=== PATIENT | female | born 1950 | race Caucasian/White ===

== ENCOUNTER → 2017-12-12 10:08 | Outpatient (CLI) | payer OTHER, MEDICARE, SELFPAY ==
--- NOTE | 2017-12-12 10:12 | DI.RAD.S_ITS ---
PROCEDURE: XR HIP W PEL IF DONE RT 2V INDICATIONS: Clicking sound with ambulation/pain TECHNIQUE: AP pelvis with lateral view(s) of the left and right hip(s). COMPARISON: None. FINDINGS: Bones: No fractures or dislocations. Pelvic ring appears intact. No suspicious bony lesions. Mild subchondral sclerosis and spurring in tibial is bilateral although no definite hip joint space narrowing. Lower lumbar discogenic changes are present. Presumed subcentimeter bone island projecting in the right ischial tuberosity. Soft tissues: The visualized bowel gas pattern is normal. No suspicious soft tissue calcifications. IMPRESSION: Mild bilateral hip degenerative changes as above. Lower lumbar spine degenerative disc disease. Dictated by: Albert Lance M.D. on 12/12/2017 at 11:48 Approved by: Albert Lance M.D. on 12/12/2017 at 11:50
[2017-12-12 11:32] LABS: Add Manual Diff / Slide Review NO; Basophils Percent Auto 0.5 % (0-2); Eosinophils Percent Auto 0.8 % (2-4); Hematocrit 37.5 % (36-46); Hemoglobin 12.9 g/dL (12.0-16.0); Lymphocytes Percent Auto 23.5 % (25-40); Mean Corpuscular HGB Conc 34.3 % (30-36); Mean Corpuscular Hemoglobin 30.8 PG (26-34); Mean Corpuscular Volume 89.9 fL (80-100); Monocytes Percent Auto 7.6 % (3-14); Neutrophils Absolute Auto 3200 /uL (3000-5900); Neutrophils Percent Auto 67.6 % (50-75); Platelet Count 302 X10^3/uL (150-400); Red Blood Cell Count 4.17 X10^6/uL (4.0-5.2); Red Cell Distribution Width 13.4 % (11.6-14.8); White Blood Cell Count 4.7 X10^3/uL (4.5-11.0)
[2017-12-12 11:39] LABS: Alanine Aminotransferase 28 IU/L (9-52); Albumin 4.6 g/dL (3.5-5.0); Albumin Globulin Ratio 1.4 (1.0-2.8); Alkaline Phosphatase 39 U/L (38-126); Aspartate Aminotransferase 26 IU/L (14-36); BUN Creatinine Ratio 18.6 (6-22); Bilirubin Total 0.5 mg/dL (0.2-1.3); Blood Urea Nitrogen 13 mg/dL (7-17); Calcium 9.8 mg/dL (8.4-10.2); Carbon Dioxide 31 mmol/L (22-32); Chloride 101 mmol/L (98-107); Cholesterol 198 mg/dL (140-199); Estimated Glomerular Filt Rate > 60.0 mL/min (>60); Globulin 3.2 g/dL (1.7-4.1); Glucose 84 mg/dL (80-110); HDL Cholesterol 60 mg/dL (40-60); HEMOLYSIS < 15 (0-50); LDL Cholesterol Calculated 123 mg/dL (<100); Potassium 3.8 mmol/L (3.4-5.1); Sodium 143 mmol/L (137-145); Total Protein 7.8 g/dL (6.3-8.2); Triglycerides 73 mg/dL (35-150)
[2017-12-12 12:08] LABS: Thyroid Stimulating Hormone 2.46 uIU/mL (0.47-4.68)
== END ==
PROVIDERS: Family Provider Family Medicine; PCP Family Medicine; Visit Provider Nurse Practitioner Family
DX: I10 Essential (primary) hypertension (principal); E78.5 Hyperlipidemia, unspecified; M25.551 Pain in right hip
CPT/HCPCS: 36415; 73502; 80053; 80061; 84443; 85025

== ENCOUNTER 2018-02-05 10:45 | Outpatient (RCR) | payer OTHER, MEDICARE, SELFPAY ==
--- NOTE | 2018-02-05 12:47 | PT.OIE ---
Current Diagnoses Osteoarthritis of hip, unspecified (02/05/18) Pain in left hip (02/05/18) Strain of muscle, fascia and tendon of the posterior muscle group at thigh level, left thigh, subsequent encounter (02/05/18) Past Medical History (Last Reviewed 12/12/17 @ 10:39 by Geraldine Rivas DNP, ANP, DOCUMENT SCANNER-C) Foot pain (Chronic) Migraines (Chronic 2004) RLS (restless legs syndrome) (Chronic) Shoulder pain (Chronic 2004) Anemia (Resolved 1969) Chicken pox (Resolved) Mumps (Resolved) Urinary incontinence (Resolved) Past Surgical History (Last Reviewed 12/12/17 @ 10:39 by Geraldine Rivas DNP, ANP, DOCUMENT SCANNER-C) Anesthesia (Resolved) History of breast surgery (Resolved 2007) History of urinary tract surgery (Resolved 1999) Status post bunionectomy (Resolved 1984) Status post colonoscopy (Resolved 2010) Provider Visit Care Team Role Provider Type Mora Samayoa MD Family Provider Physician Primary Care Provider Specialty: [facility] Address: [address] [place] [address], [facility] Email: [email or web address] Geraldine Rivas DNP, SHAUN, DOCUMENT SCANNER-C Attending Provider Advanced Solder Cream Maker Specialty: [facility] Address: [address] [place] [address], [facility] Email: Physical Therapy Initial Evaluation PT-OP-A Visit Information Start: 02/05/18 12:17 Freq: Status: Active Protocol: Document 02/05/18 11:15 DCW (Rec: 02/05/18 12:47 DCW [id number]) Out-Patient Physical Therapy Visit Information Visit Information Visit Type Initial Evaluation Visit Start Time 11:15 Visit Stop Time 11:50 Total Visit Minutes 35 Visit Number 1 Number of REFLESHER Visits 0 Evaluation Information Evaluation Date 02/05/18 PT-OP-B Current Condition Start: 02/05/18 12:17 Freq: Status: Active Protocol: Document 02/05/18 11:15 DCW (Rec: 02/05/18 12:47 DCW [id number]) Current Condition History of Current Condition Onset Date three months Current Complaints posterior hip pain History of Current Condition Pt is a 67 year old female presenting with a three month history of hip pain. 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 Pt notes that it was much worse at that time than it is currently . Pt reports a recent goal of walking 10,000 steps each day, and she normally doesn't get much pain, but does experience some clicking in her lateral thigh, notes she can 't really feel it, I just hear it. Pt can relieve her pain with Naproxin and/or ice. Last year, she was having some back pain, was seen in Pt, and has an HEP which helps her control her back pain, which she continues to do, and she has noticed it does help her hip pain as well. Pt reports that she has had x-rays, which revealed the beginning of hip arthritis. Prior Treatments and Tests X-rays - bilateral hip osteoarthritis Treatment Goals Patient/Caregiver Goals I want to make sure I can keep walking and stay active. Prior Functional Status Baseline Function- ADL's Independent Baseline Function- Mobility Independent Baseline Function- Recreation/Hobbies walking 10,000 steps/day PT-OP-C Subjective Start: 02/05/18 12:17 Freq: Status: Active Protocol: Document 02/05/18 11:15 DCW (Rec: 02/05/18 12:47 DCW [id number]) Patient Questionnaires Lower Extremity Functional Scale LEFS Score 64/68 = 94.12% LEFS Impairment 1 to 19% Impaired (Score 63-79 ) OP-PT Pain Assessment Pain Assessment Grid Paper Pain Assessment Grid Completed Yes Location Left Posterior Lateral Hip Intensity 3 Scale Used Numeric (1 - 10) Description Aching Pressure PT-OP-F Manual Assessment Start: 02/05/18 12:17 Freq: Status: Active Protocol: Document 02/05/18 11:15 DCW (Rec: 02/05/18 12:47 DCW [id number]) Manual Assessments Soft Tissue Assessment Soft Tissue Mobility Assessment Moderate tone at left piriformis, Tenderness 1/4 = Complaint of pain, at L piriformis and L ITB Joint Mobility Assessment Joint Mobility Assessment bilateral hip mobility WNL, no reports of pain PT-OP-K Range of Motion Start: 02/05/18 12:17 Freq: Status: Active Protocol: Document 02/05/18 11:15 DCW (Rec: 02/05/18 12:47 DCW [id number]) Hip Goniometric Range of Motion Hip Measured in Degrees Right Passive Hip ROM WFL Yes Right Active Hip ROM WFL Yes Left Passive Hip ROM WFL Yes Left Active Hip ROM WFL Yes Knee Goniometric Range of Motion Knee Measured in Degrees Right Knee ROM WFL Yes Left Knee ROM WFL Yes PT-OP-L Special Tests Start: 02/05/18 12:17 Freq: Status: Active Protocol: Document 02/05/18 11:15 DCW (Rec: 02/05/18 12:47 DCW [id number]) Special Tests Hip Special Tests Tripod Sign Test Results Negative Scour Test Test Results Negative Moore's Compression Test Results Negative Piriformis Test Results Tenderness/Increased tone Straight Leg Raise Test Results Negative FELICITAS Test Results Negative Knee Special Tests Sandeep's Test Test Results Negative PT-OP-M Strength Start: 02/05/18 12:17 Freq: Status: Active Protocol: Document 02/05/18 11:15 DCW (Rec: 02/05/18 12:47 DCW [id number]) Hip Strength Hip Manual Muscle Testing Right Flexion (L2) 5 Normal Abduction 5 Normal Adduction 5 Normal External Rotation 4+ Good+ Internal Rotation 4+ Good+ Left Flexion (L2) 5 Normal Abduction 5 Normal Adduction 5 Normal External Rotation 4+ Good+ Internal Rotation 4+ Good+ Knee Strength Knee Manual Muscle Testing Right Flexion (S2) 5 Normal Extension (L3) 5 Normal Left Flexion (S2) 5 Normal Extension (L3) 5 Normal PT-OP-Q Treatments Start: 02/05/18 12:17 Freq: Status: Active Protocol: Document 02/05/18 11:15 DCW (Rec: 02/05/18 12:47 DCW [id number]) Therapeutic Exercises Supine Exercises 1 Supine Exercise Name Figure-4, Wmdn-[id number]-pwnmorqu shoulder Side left PT-OP-T Assessment and Plan Start: 02/05/18 12:17 Freq: Status: Active Protocol: Document 02/05/18 11:15 DCW (Rec: 02/05/18 12:47 DCW [id number]) Physical Therapy Assessment Rehab Potential Rehabilitation Potential Excellent Evaluation Complexity Number of Personal Factors/Comorbidities 0 Number of Body Systems Impaired 1-2 Clinical Presentation at Evaluation Stable Impairments Impairments Pain Tone Goals Three Impairment Special Testing Short Term Goal (STG) Piriformis test negative STG Duration 02/26/18 Two Impairment Pain Short Term Goal (STG) Pt to report a 0/10 pain with ambulation STG Duration 02/26/18 One Impairment Pt does not hold HEP stretches for a long enough time Short Term Goal (STG) Pt to perform independent HEP appropriately STG Duration 02/26/18 Assessment Summary Assessment Pt presents with a largely negative hip evaluation, only demonstrating moderate tone and mild tenderness to the left piriformis and ITB. Pt's pain location is not indicative of typical hip osteoarthritis/DJD, and appears to have been more a soft tissue injury to her piriformis, which has begun to help. Pt is already performing an extensive HEP from last year when she hurt her back, and is performing most, if not all, or the recommended piriformis stretching and strengthening that she would get from outpatient therapy. Pt does note, however, that she does not hold her stretches more than 15-20 seconds. Pt was informed that she should increase the length of time she holds her stretch, but other than that, is largely already doing everything correctly. Therapist and patient decided to schedule a return appointment for 2-3 weeks from her initial evaluation, and if further instruction in required, pt should return, however, if pt is progressing well and has no further questions, she may cancel her appointment, and will be discharged from PT. Physical Therapy Plan Frequency and Duration Frequency of Treatment 1x/Week Duration of Treatment 6 weeks Plan of Care Start Date 02/05/18 Plan of Care End Date 03/19/18 Therapeutic Interventions Therapeutic Interventions Home Exercise Program Joint Mobilizations Manual Therapy Self-Care/Home Management Soft Tissue Mobilization Therapeutic Exercises Modalities Cold Pack/Ice Massage Electric Stimulation Hot Packs Ultrasound Next Visit Focus/Plan Next Note Type Treatment Note Next Visit Plan Manual therapy, tone-control modalities, strengthening
--- NOTE | 2018-02-05 12:49 | PT.OPPOC ---
Current Diagnoses Osteoarthritis of hip, unspecified (02/05/18) Pain in left hip (02/05/18) Strain of muscle, fascia and tendon of the posterior muscle group at thigh level, left thigh, subsequent encounter (02/05/18) Provider Visit Care Team Role Provider Type Mora Samayoa MD Family Provider Physician Primary Care Provider Specialty: [facility] Practice Address: [address] [place] [address], [id number] Email: [email or web address] Geraldine Rivas, KENN, ANP, REHABILITATION SERVICES COORDINATOR-C Attending Provider Advanced Wheel Braider Specialty: [facility] Practice Address: [address] [place] [address], [id number] Email: Plan Of Care PT-OP-T Assessment and Plan Start: 02/05/18 12:17 Freq: Status: Active Protocol: Document 02/05/18 11:15 DCW (Rec: 02/05/18 12:47 DCW [id number]) Physical Therapy Assessment Rehab Potential Rehabilitation Potential Excellent Evaluation Complexity Number of Personal Factors/Comorbidities 0 Number of Body Systems Impaired 1-2 Clinical Presentation at Evaluation Stable Impairments Impairments Pain Tone Goals Three Impairment Special Testing Short Term Goal (STG) Piriformis test negative STG Duration 02/26/18 Two Impairment Pain Short Term Goal (STG) Pt to report a 0/10 pain with ambulation STG Duration 02/26/18 One Impairment Pt does not hold HEP stretches for a long enough time Short Term Goal (STG) Pt to perform independent HEP appropriately STG Duration 02/26/18 Assessment Summary Assessment Pt presents with a largely negative hip evaluation, only demonstrating moderate tone and mild tenderness to the left piriformis and ITB. Pt's pain location is not indicative of typical hip osteoarthritis/DJD, and appears to have been more a soft tissue injury to her piriformis, which has begun to help. Pt is already performing an extensive HEP from last year when she hurt her back, and is performing most, if not all, or the recommended piriformis stretching and strengthening that she would get from outpatient therapy. Pt does note, however, that she does not hold her stretches more than 15-20 seconds. Pt was informed that she should increase the length of time she holds her stretch, but other than that, is largely already doing everything correctly. Therapist and patient decided to schedule a return appointment for 2-3 weeks from her initial evaluation, and if further instruction in required, pt should return, however, if pt is progressing well and has no further questions, she may cancel her appointment, and will be discharged from PT. Physical Therapy Plan Frequency and Duration Frequency of Treatment 1x/Week Duration of Treatment 6 weeks Plan of Care Start Date 02/05/18 Plan of Care End Date 03/19/18 Therapeutic Interventions Therapeutic Interventions Home Exercise Program Joint Mobilizations Manual Therapy Self-Care/Home Management Soft Tissue Mobilization Therapeutic Exercises Modalities Cold Pack/Ice Massage Electric Stimulation Hot Packs Ultrasound Next Visit Focus/Plan Next Note Type Treatment Note Next Visit Plan Manual therapy, tone-control modalities, strengthening Plan of Care Dates Plan of Care Start Date 02/05/18 Plan of Care End Date 03/19/18 Please Sign and Return: I have reviewed this Plan of Care and certify that the skilled therapy services above are required to meet the patient?s needs. Physician Signature Date Printed Name and Credentials Clinical Instructor Signature Printed Name and Credentials
--- NOTE | 2018-03-20 10:25 | PT.OPDS ---
Current Diagnoses Osteoarthritis of hip, unspecified (02/05/18) Pain in left hip (02/05/18) Strain of muscle, fascia and tendon of the posterior muscle group at thigh level, left thigh, subsequent encounter (02/05/18) Provider Visit Care Team Role Provider Type Mora Samayoa MD Family Provider Physician Primary Care Provider Specialty: [facility] Practice Address: [address] [place] [address], [id number] Email: [email or web address] Geraldine Rivas, KENN, ANP, SCHOOL BUS DRIVER-C Attending Provider Advanced Landscape Maintenance Internship Specialty: [facility] Address: [address] [place] [address], [id number] Email: Visit Number Visit Number 1 Discharge Summary PT-OP-B Current Condition Start: 02/05/18 12:17 Freq: Status: Active Protocol: Document 02/05/18 11:15 DCW (Rec: 02/05/18 12:47 DCW [id number]) Current Condition History of Current Condition Onset Date three months Current Complaints posterior hip pain History of Current Condition Pt is a 67 year old female presenting with a three month history of hip pain. 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 Pt notes that it was much worse at that time than it is currently . Pt reports a recent goal of walking 10,000 steps each day, and she normally doesn't get much pain, but does experience some clicking in her lateral thigh, notes she can' t really feel it, I just hear it. Pt can relieve her pain with Naproxin and/or ice. Last year, she was having some back pain, was seen in Pt, and has an HEP which helps her control her back pain, which she continues to do, and she has noticed it does help her hip pain as well. Pt reports that she has had x-rays, which revealed the beginning of hip arthritis. Prior Treatments and Tests X-rays - bilateral hip osteoarthritis Treatment Goals Patient/Caregiver Goals I want to make sure I can keep walking and stay active. Prior Functional Status Baseline Function- ADL's Independent Baseline Function- Mobility Independent Baseline Function- Recreation/Hobbies walking 10,000 steps/day PT-OP-C Subjective Start: 02/05/18 12:17 Freq: Status: Active Protocol: Document 02/05/18 11:15 DCW (Rec: 02/05/18 12:47 DCW [id number]) Patient Questionnaires Lower Extremity Functional Scale LEFS Score 64/68 = 94.12% LEFS Impairment 1 to 19% Impaired (Score 63-79 ) OP-PT Pain Assessment Pain Assessment Grid Paper Pain Assessment Grid Completed Yes Location Left Posterior Lateral Hip Intensity 3 Scale Used Numeric (1 - 10) Description Aching Pressure PT-OP-F Manual Assessment Start: 02/05/18 12:17 Freq: Status: Active Protocol: Document 02/05/18 11:15 DCW (Rec: 02/05/18 12:47 DCW [id number]) Manual Assessments Soft Tissue Assessment Soft Tissue Mobility Assessment Moderate tone at left piriformis, Tenderness 1/4 = Complaint of pain, at L piriformis and L ITB Joint Mobility Assessment Joint Mobility Assessment bilateral hip mobility WNL, no reports of pain PT-OP-K Range of Motion Start: 02/05/18 12:17 Freq: Status: Active Protocol: Document 02/05/18 11:15 DCW (Rec: 02/05/18 12:47 DCW [id number]) Hip Goniometric Range of Motion Hip Measured in Degrees Right Passive Hip ROM WFL Yes Right Active Hip ROM WFL Yes Left Passive Hip ROM WFL Yes Left Active Hip ROM WFL Yes Knee Goniometric Range of Motion Knee Measured in Degrees Right Knee ROM WFL Yes Left Knee ROM WFL Yes PT-OP-L Special Tests Start: 02/05/18 12:17 Freq: Status: Active Protocol: Document 02/05/18 11:15 DCW (Rec: 02/05/18 12:47 DCW [id number]) Special Tests Hip Special Tests Tripod Sign Test Results Negative Scour Test Test Results Negative Moore's Compression Test Results Negative Piriformis Test Results Tenderness/Increased tone Straight Leg Raise Test Results Negative FELICITAS Test Results Negative Knee Special Tests Sandeep's Test Test Results Negative PT-OP-M Strength Start: 02/05/18 12:17 Freq: Status: Active Protocol: Document 02/05/18 11:15 DCW (Rec: 02/05/18 12:47 DCW [id number]) Hip Strength Hip Manual Muscle Testing Right Flexion (L2) 5 Normal Abduction 5 Normal Adduction 5 Normal External Rotation 4+ Good+ Internal Rotation 4+ Good+ Left Flexion (L2) 5 Normal Abduction 5 Normal Adduction 5 Normal External Rotation 4+ Good+ Internal Rotation 4+ Good+ Knee Strength Knee Manual Muscle Testing Right Flexion (S2) 5 Normal Extension (L3) 5 Normal Left Flexion (S2) 5 Normal Extension (L3) 5 Normal PT-OP-T Assessment and Plan Start: 02/05/18 12:17 Freq: Status: Active Protocol: Document 03/20/18 10:22 DCW (Rec: 03/20/18 10:25 DCW [id number]) Physical Therapy Assessment Goals Three Impairment Special Testing Short Term Goal (STG) Piriformis test negative STG Duration 02/26/18 Two Impairment Pain Short Term Goal (STG) Pt to report a 0/10 pain with ambulation STG Duration 02/26/18 One Impairment Pt does not hold HEP stretches for a long enough time Short Term Goal (STG) Pt to perform independent HEP appropriately STG Duration 02/26/18 Physical Therapy Plan Discharge Physical Therapy Discharge Reasons No Longer Attending PT Discharge Comments At the time of her initial evaluation, pt was doing very well, and decided she would prefer to work on it independently. If was told to schedule a return visit within a month if she had any questions or concerns. Pt has now not been seen in more than one month, and will be discharged from skilled therapy at this time.
== END 2018-05-11 09:52 ==
LOC: PHYS 10:45
PROVIDERS: Family Provider Family Medicine; PCP Family Medicine; Visit Provider Nurse Practitioner Family
DX: M16.9 Osteoarthritis of hip, unspecified (principal); S76.312D Strain of muscle, fascia and tendon of the posterior muscle group at thigh level, left thigh, subsequent encounter; M25.552 Pain in left hip
CPT/HCPCS: 97161

== ENCOUNTER → 2018-03-05 15:00 | Outpatient (CLI) | payer OTHER, MEDICARE, SELFPAY ==
--- NOTE | 2018-03-05 15:02 | DI.RAD.S_ITS ---
This blank DEXA report has been sent in error by the PACS system. The correct and complete report will be forthcoming in 1-2 days. Thank you for your patience and understanding. Dictated by: Melody Montgomery MD, PhD on 03/06/2018 at 8:23 Approved by: Melody Montgomery MD, PhD on 03/06/2018 at 8:23
== END ==
PROVIDERS: PCP Nurse Practitioner Family; Visit Provider Nurse Practitioner Family
DX: M85.851 Other specified disorders of bone density and structure, right thigh (principal); Z78.0 Asymptomatic menopausal state; Z82.62 Family history of osteoporosis
CPT/HCPCS: 77080

== ENCOUNTER → 2018-03-27 07:46 | Outpatient (CLI) | payer OTHER, MEDICARE, SELFPAY ==
[2018-03-27 09:14] LABS: Cholesterol 163 mg/dL (140-199); HDL Cholesterol 65 mg/dL (40-60); LDL Cholesterol Calculated 87 mg/dL (<100); Triglycerides 56 mg/dL (35-150)
== END ==
PROVIDERS: PCP Nurse Practitioner Family; Visit Provider Nurse Practitioner Family
DX: E78.00 Pure hypercholesterolemia, unspecified (principal)
CPT/HCPCS: 36415; 80061

== ENCOUNTER 2018-06-27 14:53 | Outpatient (RCR) | payer OTHER, MEDICARE, SELFPAY ==
--- NOTE | 2018-06-27 16:29 | PT.OIE ---
Current Diagnoses Other chronic pain (06/27/18) Sacrococcygeal disorders, not elsewhere classified (06/27/18) Past Medical History (Last Reviewed 12/12/17 @ 10:39 by Geraldine Rivas DNP, ANP, FURNACE UNLOADER-C) Foot pain (Chronic) Migraines (Chronic 2004) RLS (restless legs syndrome) (Chronic) Shoulder pain (Chronic 2004) Anemia (Resolved 1969) Chicken pox (Resolved) Mumps (Resolved) Urinary incontinence (Resolved) Past Surgical History (Last Reviewed 12/12/17 @ 10:39 by Geraldine Rivas DNP, ANP, FURNACE UNLOADER-C) Anesthesia (Resolved) History of breast surgery (Resolved 2007) History of urinary tract surgery (Resolved 1999) Status post bunionectomy (Resolved 1984) Status post colonoscopy (Resolved 2010) Provider Visit Care Team Role Provider Type Lorin Kelsey MD Primary Care Provider Physician Specialty: [facility] Address: [address] [place] [address] Email: [email or web address] Attending Provider Advanced Workers Compensation Specialist Specialty: [facility] Address: [address] [place] [address] Email: [email or web address] Physical Therapy Initial Evaluation PT-OP-A Visit Information Start: 06/27/18 15:55 Freq: Status: Active Protocol: Document 06/27/18 15:56 EA (Rec: 06/27/18 16:28 MAIKEL [id number]) Out-Patient Physical Therapy Visit Information Visit Information Visit Type Initial Evaluation Visit Start Time 15:15 Visit Stop Time 15:50 Total Visit Minutes 35 Visit Number 1 Evaluation Information Evaluation Date 06/27/18 PT-OP-B Current Condition Start: 06/27/18 15:55 Freq: Status: Active Protocol: Document 06/27/18 15:56 EA (Rec: 06/27/18 16:28 EA [id number]) Current Condition History of Current Condition Onset Date First week of April/2018 Current Complaints C/O lack of knowledge to home exercises program History of Current Condition Pt reports right SI joint pain gradually started on the first week of April 2018 with no known injury; states she has previuos formal PT due to piriformis tightness and was discharge to home exercises program. Patient performed previous HEP and applied to current condition with better results. Today patient states that she does not have pain anymore but would like to know if there are any HEP she can do at home to prevent symptoms recurrence. Prior Treatments and Tests Formal PT June 2017: Piriformis issue. Future Testing and Treatments Planned None identified,. Treatment Goals Patient/Caregiver Goals Patient would like to know safe home exercises program Prior Functional Status Baseline Function- ADL's Independent Baseline Function- Mobility Independent Current Functional Impairments (Reported) Functional Limitations- ADL's indep no limitation Functional Limitations- Mobility/Gait indep no limitation Functional Limitations- Work/School No limitation PT-OP-C Subjective Start: 06/27/18 15:55 Freq: Status: Active Protocol: Document 06/27/18 15:56 EA (Rec: 06/27/18 16:28 EA [id number]) OP-PT Subjective Patient Comments Patient Comments I just like to know how can I prevent to have back pain. Patient also reports that she wanna know whats going to her back. Patient Reported Progress Improving Patient Questionnaires Oswestry Low Back Index Oswestry Score 0 Oswestry Impairment 0% Impaired (Score 0) PT-OP-G Mobility & Gait Start: 06/27/18 15:55 Freq: Status: Active Protocol: Document 06/27/18 15:56 EA (Rec: 06/27/18 16:28 EA [id number]) OP Mobility Evaluation Bed Mobility Rolling Indep Supine to and from Sit indep PT-OP-J Posture/Palpation/Skin Start: 06/27/18 15:55 Freq: Status: Active Protocol: Document 06/27/18 15:56 EA (Rec: 06/27/18 16:28 EA [id number]) Palpation Assessment Location One Palpation Location Right lower back Palpation Findings Soft Tissue Tightness PT-OP-K Range of Motion Start: 06/27/18 15:55 Freq: Status: Active Protocol: Document 06/27/18 15:56 EA (Rec: 06/27/18 16:28 EA [id number]) Lumbar Spine Range of Motion Lumbar Spine Active Percentage Testing Position Standing Flexion 85 Extension 80 Rotation Left 85 Rotation Right 85 Lateral Flexion Left 80 Lateral Flexion Right 80 ROM Limitations Soft Tissue Tightness PT-OP-L Special Tests Start: 06/27/18 15:55 Freq: Status: Active Protocol: Document 06/27/18 15:56 EA (Rec: 06/27/18 16:28 EA [id number]) Special Tests Lumbar Spine Special Tests Compression Test Results negative Hip Special Tests Tripod Sign Test Results Negative Scour Test Test Results Negative Piriformis Test Results Tenderness/Increased tone Straight Leg Raise Test Results Negative FELICITAS Test Results Negative Knee Special Tests Sandeep's Test Test Results Negative PT-OP-M Strength Start: 06/27/18 15:55 Freq: Status: Active Protocol: Document 06/27/18 15:56 EA (Rec: 06/27/18 16:28 EA [id number]) Trunk Strength Trunk Manual Muscle Testing Testing Position Sitting Flexion 5 Normal Extension 5 Normal Rotation Left 5 Normal Rotation Right 5 Normal Lateral Flexion Left 5 Normal Lateral Flexion Right 5 Normal Hip Strength Hip Manual Muscle Testing Left Reason Not Measured WFL Right Reason Not Measured WFL Ankle/Foot Strength Ankle and Foot Manual Muscle Testing Left Comments able to walk on heels and toes Right Comments able to walk on heels and toes PT-OP-Q Treatments Start: 06/27/18 15:55 Freq: Status: Active Protocol: Document 06/27/18 15:56 EA (Rec: 06/27/18 16:28 EA [id number]) Self-Care/Home Management Treatment Education Patient Education Body Mechanics Home Exercise Program Joint Protection Pain Management Posture Safety Other Education Proved HEP and corrected previous HEP. PT-OP-T Assessment and Plan Start: 06/27/18 15:55 Freq: Status: Active Protocol: Document 06/27/18 15:56 EA (Rec: 06/27/18 16:28 EA [id number]) Physical Therapy Assessment Evaluation Complexity Number of Personal Factors/Comorbidities 0 Number of Body Systems Impaired 1-2 Clinical Presentation at Evaluation Stable Impairments Impairments ROM Soft Tissue Mobility Assessment Summary Assessment 68 y/o F patient who diagnosed with R SI joint strain 12 weeks ago. Today patient exhibits no deficits in all functional mobility except with slight lumbar ROM limitation with slight tightness to paralumbars, QL, lumbar fascia. Patient is educated today with lifting mechanics and home exercises program. Patient requested to be discharged after today's appointment and will continue home exercise program. Physical Therapy Plan Discharge Physical Therapy Discharge Reasons Patient Request
== END 2018-09-07 16:45 | disposition home or self-care (01) ==
LOC: PHYS 14:53
PROVIDERS: PCP Family Medicine; Visit Provider Internal Medicine
DX: M53.3 Sacrococcygeal disorders, not elsewhere classified (principal); G89.29 Other chronic pain
CPT/HCPCS: 97161; 97535

== ENCOUNTER → 2018-08-22 16:08 | Outpatient (CLI) | payer OTHER, MEDICARE, SELFPAY ==
--- NOTE | 2018-08-22 16:11 | DI.MG.S_ITS ---
BILATERAL DIGITAL SCREENING MAMMOGRAM 3D/2D WITH CAD: 08/22/2018 CLINICAL: Routine screening. Family history of breast cancer. Comparison is made to exams dated: 08/21/2017 mammogram, 08/01/2016 mammogram, 07/06/2015 mammogram, 07/03/2014 mammogram, and 06/18/2013 mammogram - [facility]. The tissue of both breasts is heterogeneously dense. This may lower the sensitivity of mammography. Current study was also evaluated with a Computer Aided Detection (CAD) system. There is a benign biopsy clip in the left breast. No significant masses, calcifications, or other findings are seen in either breast. There has been no significant interval change. IMPRESSION: NEGATIVE There is no mammographic evidence of malignancy. A 1 year screening mammogram is recommended. This exam was interpreted at Station ID: [id number]. NOTE: For mammograms, a report in lay terms will be sent to the patient. Approximately 15% of breast malignancies will not be visualized mammographically. In the management of a palpable breast mass, a negative mammogram must not discourage biopsy of a clinically suspicious lesion. Electronically Signed By: Ferny ponce/omar:08/22/2018 18:27:38 letter sent: Normal Exam ACR BI-RADS Category 1: Negative [id number]
== END ==
PROVIDERS: PCP Family Medicine; Visit Provider Family Medicine
DX: Z12.31 Encounter for screening mammogram for malignant neoplasm of breast (principal); Z80.3 Family history of malignant neoplasm of breast
CPT/HCPCS: 77063; 77067

== ENCOUNTER → 2018-11-06 16:44 | Outpatient (CLI) | payer OTHER, MEDICARE, SELFPAY | PROVIDERS: PCP Family Medicine; Visit Provider Physician Assistant | DX: R35.0 Frequency of micturition (principal) | CPT/HCPCS: 87086 ==

== ENCOUNTER 2019-05-14 19:17 | Emergency (ER) | payer OTHER, MEDICARE, SELFPAY ==
[2019-05-14 19:22] VITALS: BP 177/67; PULSE 73; RESP 15; TEMP 36.9; O2SAT 100; BMI 25.4
--- NOTE | 2019-05-14 19:25 | ED.DIZZY ---
HPI - Dizziness General Chief Complaint: Urogenital-Female Stated Complaint: dizzy, blood in urine Time Seen by Provider: 05/14/19 19:25 Source: patient and family () Mode of arrival: Ambulatory Limitations: no limitations History of Present Illness HPI Narrative: This is a 69-year-old female comes to the emergency department with complaint of dizziness and blood in her urine. Patient states that she noticed the blood just today. She has also felt sort of dizzy like she has to hang on to something. She does not feel like she is going to pass out. She denies any chest pain or shortness of breath. She has been nauseated and had 1 episode of vomiting just at arrival. She states she had 3 soft stools today but no black or blood. She has had blood or urine but denies frequency, dysuria urgency. She is also complaining a little bit of right flank pain but denies any abdominal or suprapubic pain. Patient states she has had the flank pain occasionally in the past. She is once before had a UTI with hematuria and dizziness and states she does not get the usual symptoms. She takes Flexeril daily and alendronate weekly. She has had foot surgery but denied any other intra-abdominal surgeries. She has not had kidney stones in the past. She is allergic to sulfa. Dr. Kelsey is her primary care. Related Data Home Medications Medication Instructions Recorded Confirmed Pregnenolone (#PREGNENOLONE) 50 mg PO QDAY #0 04/21/11 04/30/19 ASCORBIC ACID (VITAMIN C) 500 mg PO Q DAY #0 05/12/11 04/30/19 BEE POLLEN/BIOTIN/BLACK COHO 1 tab PO BID #0 05/12/11 04/30/19 (WOMEN'S MULTIVITAMIN/MULTIMINERAL) FLAXSEED OIL (BIOFLAX) 1,000 mg PO BID #0 05/12/11 04/30/19 coenzyme Q10 [Co Q-10] 100 mg PO QDAY #0 05/12/11 04/30/19 CHOLECALCIFEROL (VITAMIN D3) 5,000 units PO QDAY #0 04/26/12 04/30/19 Vitamin E (VITAMIN E) 400 units PO QDAY #0 04/26/12 04/30/19 calcium carbonate 1,177 mg 1,200 mg PO DAILY tab 05/26/18 04/30/19 chewable tablet acyclovir 400 mg tablet 400 mg PO BID PRN tab 07/11/18 04/30/19 Previous Rx's Medication Instructions Recorded ketoconazole 0 TOPICAL BID #60 gm 01/27/17 atorvastatin 20 mg tablet 20 mg PO DAILY #90 tab 11/29/18 sumatriptan succinate 100 mg tablet 100 mg PO .COMPLEX #9 tab 03/06/19 alendronate 70 mg tablet 70 mg PO QWEEK #4 tab 03/11/19 ciprofloxacin HCl 500 mg PO Q12H #14 tab 05/14/19 Allergies Allergy/AdvReac Type Severity Reaction Status Date / Time Sulfa (Sulfonamide Allergy Severe cold Verified 05/14/19 19:31 Antibiotics) sore/rash [SULFA (SULFONAMIDE ANTIBIOTICS)] Review of Systems Review of Systems ROS Unobtainable: All systems reviewed & are unremarkable except as noted in HPI and below Constitutional Constitutional: Reports chills, Denies fever(s), Denies lethargy and Denies weakness Cardiovascular Cardiovascular: Denies chest pain, Denies syncope, Denies lightheadedness and Denies dyspnea Respiratory Respiratory: Denies dyspnea Gastrointestinal Gastrointestinal: Denies abdominal pain, Denies melena, Denies hematochezia, Denies change in bowel habits, Denies constipation, Denies diarrhea, Reports nausea and Denies vomiting Genitourinary Genitourinary: Denies abnormal vaginal bleeding, Reports hematuria, Denies urinary frequency, Denies dysuria, Reports flank pain (right), Denies urinary incontinence and Denies urinary urgency Integumentary/Breasts Skin/Breast: Denies rash Neurologic Neurologic: Denies syncope and Denies weakness Patient History Medical History Anemia (Resolved 1969) Chicken pox (Resolved) Foot pain (Chronic) Hyperlipidemia (Chronic) Migraines (Chronic 2004) Mumps (Resolved) Osteoporosis (Chronic) RLS (restless legs syndrome) (Chronic) Shoulder pain (Chronic 2004) Urinary incontinence (Resolved) Surgical History Anesthesia (Resolved) History of breast surgery (Resolved 2007) History of urinary tract surgery (Resolved 1999) Status post bunionectomy (Resolved 1984) Status post colonoscopy (Resolved 2010) Family History Mother CAD (coronary artery disease) DMII (diabetes mellitus, type 2) Congestive heart failure Heart attack Father Lung cancer Brother DMII (diabetes mellitus, type 2) Hypertension Hyperlipidemia Pneumonia Brother DMII (diabetes mellitus, type 2) Hypertension Alzheimer's disease History of kidney cancer Mini stroke Brother History of eye surgery History of back surgery Brother Cirrhosis of liver Brother Accidental discharge of gun Brother Pneumonia Sister Kidney tumor (benign) Sister DMII (diabetes mellitus, type 2) Hypertension Hyperlipidemia Mini stroke Breast cancer Bladder cancer Factor V Leiden Sister DMII (diabetes mellitus, type 2) Factor V Leiden Hyperlipidemia Hypertension Hypertriglyceridemia GERD (gastroesophageal reflux disease) History of neck surgery Grandmother Asthma, severe Grandfather Heart attack Grandmother Heart attack Grandfather No problems noted. Social History marital status: household members: spouse lives independently: Yes caregiver/support person: No housing: house occupational status: employed Smoking Status: Never smoker second hand exposure: No alcohol intake: current substance use type: does not use Exam Narrative Exam Narrative: GENERAL: Alert and oriented x three, well-nourished, well-appearing female in mild distress HEENT: Head normocephalic, atraumatic, EOMI, pupils reactive, face symmetric, moist mucous membranes NECK: Supple, full range of motion CARDIOVASCULAR: Regular rate and rhythm without murmurs, rubs or gallops. RESPIRATORY: Breath sounds equal bilaterally, no wheezes rales or rhonchi. ABDOMEN: Soft, nontender. Normoactive bowel sounds all 4 quadrants. No guarding or rebound, rigidity, no mass : No CVA tenderness EXTREMITIES: Normal range of motion, no clubbing or edema. Neurovascularly intact NEUROLOGICAL: Cranial nerves II through XII grossly intact. Moving all extremities SKIN: Warm, dry, no petechiae, no rashes or lesions. Initial Vital Signs Initial Vital Signs: Vital Signs Temperature 98.5 F 05/14/19 19:22 Pulse Rate 73 05/14/19 19:22 Respiratory Rate 15 05/14/19 19:22 Blood Pressure 177/67 H 05/14/19 19:22 Pulse Oximetry 100 05/14/19 19:22 Course Orders Ordered: ED Orders 05/14/19 19:24 Urine Culture Stat Urine Microscopic Stat 05/14/19 19:33 CT abdomen pelvis wo con Stat 05/14/19 19:40 Complete Blood Count AUTO DIFF Stat Comprehensive Metabolic Panel Stat Partial Thromboplastin Time Stat Prothrombin Time INR Stat Discontinued Medications Acetaminophen (Tylenol) 975 mg PO NOW ONE Stop: 05/14/19 20:50 Last Admin: 05/14/19 20:57 Dose: 975 mg Documented by: SANTI Ciprofloxacin (Cipro) 500 mg PO NOW ONE Stop: 05/14/19 20:50 Last Admin: 05/14/19 20:57 Dose: 500 mg Documented by: SANTI Sodium Chloride (Normal Saline 0.9%) 1,000 mls @ 1,000 mls/hr IV BOLUS ONE Stop: 05/14/19 20:31 Last Infusion: 05/14/19 21:06 Dose: 0 mls/hr Documented by: Admin: 05/14/19 19:54 Dose: 1,000 mls/hr Documented by: FRANTZ Ketorolac Tromethamine (Toradol) 15 mg IV NOW ONE Stop: 05/14/19 19:33 Last Admin: 05/14/19 19:54 Dose: 15 mg Documented by: FRANTZ Ondansetron HCl (Zofran) 4 mg IV NOW ONE Stop: 05/14/19 19:33 Last Admin: 05/14/19 19:54 Dose: 4 mg Documented by: FRANTZ Tramadol HCl (Ultram 50mg Prepack) 1 bottle MISC SEEINSTR ONE Stop: 05/14/19 20:57 Last Admin: 05/14/19 21:00 Dose: 1 bottle Documented by: SANTI Vital Signs Vital signs: Vital Signs - 8 hr 05/14/19 19:22 05/14/19 20:48 Temperature 98.5 F Pulse Rate 73 72 Respiratory Rate 15 18 Blood Pressure 177/67 H Blood Pressure [Right Arm] 154/72 H Pulse Oximetry 100 98 MDM - Dizziness Lab Data Attestation: I reviewed the patient's lab results. Result diagrams: 05/14/19 19:40 05/14/19 19:40 Labs: Lab Results 05/14/19 05/14/19 05/14/19 Range/Units 19:24 19:40 19:40 WBC 10.0 (4.5-11.0) X10^3/uL RBC 4.13 (4.0-5.2) X10^6/uL Hgb 12.6 (12.0-16.0) g/dL Hct 37.4 (36-46) % MCV 90.5 (80-100) fL MCH 30.5 (26-34) PG MCHC 33.7 (30-36) % RDW 12.9 (11.6-14.8) % Plt Count 280 (150-400) X10^3/uL Neut % (Auto) 86.0 H (50-75) % Lymph % (Auto) 9.0 L (25-40) % Turner % (Auto) 4.3 (3-14) % Eos % (Auto) 0.2 L (2-4) % Baso % (Auto) 0.5 (0-2) % Neut # (Auto) 8600 H (5660-5879) /uL Lymph # (Auto) 900 L (2106-8344) /uL Turner # (Auto) 400 (0-900) /uL Eos # (Auto) 0 (0-450) /uL Baso # (Auto) 0 (0-100) /uL PT 12.5 (10.1-12.7) SECONDS INR 1.1 (0.9-1.3) APTT 26 L (26.4-36.2) SECONDS Sodium (137-145) mmol/L Potassium (3.4-5.1) mmol/L Chloride (98-107) mmol/L Carbon Dioxide (22-32) mmol/L BUN (7-17) mg/dL Creatinine (0.52-1.04) mg/dL Estimated GFR (>60) mL/min BUN/Creatinine Ratio (6-22) Glucose (80-110) mg/dL Calcium (8.4-10.2) mg/dL Total Bilirubin (0.2-1.3) mg/dL AST (14-36) IU/L ALT (<35) IU/L Alkaline Phosphatase (38-126) U/L Total Protein (6.3-8.2) g/dL Albumin (3.5-5.0) g/dL Globulin (1.7-4.1) g/dL Albumin/Globulin Ratio (1.0-2.8) Urine RBC None seen (0-5/HPF) Urine WBC None seen (0-5/HPF) Urine Bacteria None seen (None) Ur Culture Indicated? Cult not indicated 05/14/19 Range/Units 19:40 WBC (4.5-11.0) X10^3/uL RBC (4.0-5.2) X10^6/uL Hgb (12.0-16.0) g/dL Hct (36-46) % MCV (80-100) fL MCH (26-34) PG MCHC (30-36) % RDW (11.6-14.8) % Plt Count (150-400) X10^3/uL Neut % (Auto) (50-75) % Lymph % (Auto) (25-40) % Turner % (Auto) (3-14) % Eos % (Auto) (2-4) % Baso % (Auto) (0-2) % Neut # (Auto) (8722-9053) /uL Lymph # (Auto) (3954-0679) /uL Turner # (Auto) (0-900) /uL Eos # (Auto) (0-450) /uL Baso # (Auto) (0-100) /uL PT (10.1-12.7) SECONDS INR (0.9-1.3) APTT (26.4-36.2) SECONDS Sodium 134 L (137-145) mmol/L Potassium 3.4 (3.4-5.1) mmol/L Chloride 97 L (98-107) mmol/L Carbon Dioxide 29 (22-32) mmol/L BUN 16 (7-17) mg/dL Creatinine 0.60 (0.52-1.04) mg/dL Estimated GFR > 60.0 (>60) mL/min BUN/Creatinine Ratio 26.7 H (6-22) Glucose 132 H (80-110) mg/dL Calcium 9.6 (8.4-10.2) mg/dL Total Bilirubin 0.5 (0.2-1.3) mg/dL AST 34 (14-36) IU/L ALT 24 (<35) IU/L Alkaline Phosphatase 33 L (38-126) U/L Total Protein 8.3 H (6.3-8.2) g/dL Albumin 5.0 (3.5-5.0) g/dL Globulin 3.3 (1.7-4.1) g/dL Albumin/Globulin Ratio 1.5 (1.0-2.8) Urine RBC (0-5/HPF) Urine WBC (0-5/HPF) Urine Bacteria (None) Ur Culture Indicated? Urine Dip Bedside Urine Glucose Negative Bedside Urine Bilirubin - Negative Bedside Urine Ketone +/- 5 Urine Specific Milligan 1.010 Bedside Urine Occult Blood +/- Bedside Urine pH 8.0 Bedside Urine Protein - Negative Bedside Urine Urobilinogen - Negative Bedside Urine Nitrite - Negative Bedside Urine Leukocytes - Negative Esterase Imaging Data CT scan - abdomen: Radiologist's impression: [address] [address] [address] Scan Report Signed Patient: Adina Louis [facility]#: [id number] : 1950Acct:[id number] Age/Sex: 69 / FDate of Service: 05/14/19 Loc: ED Accession Number: [id number] Procedure: CT abdomen pelvis wo con Ordering Provider: Ana Medina D.O. PROCEDURE: CT ABDOMEN PELVIS WO CON INDICATIONS: hematuria, flank pain, dizzy TECHNIQUE: Noncontrast 5 mm thick sections acquired from the diaphragms to the symphysis. 5 mm thick coronal and sagittal reformats were then performed. For radiation dose reduction, the following was used: automated exposure control, adjustment of mA and/or kV according to patient size. COMPARISON: None. FINDINGS: Image quality: Excellent. Lung bases: Lung bases are clear. Heart size is normal. Urinary system: Both kidneys are normal in size. No kidney stones. No hydronephrosis or perinephric fat stranding. Both ureters appear non-dilated throughout their expected courses. Bladder wall thickness is normal; no calcified bladder stones. Other solid organs: Liver is normal in size. Gallbladder wall. Pancreas is normal in contours. Spleen is normal in size. No adrenal nodules. Peritoneum and bowel: Unenhanced bowel loops demonstrate normal wall thickness and caliber. There is a moderate amount of stool in colon. No free fluid or air. Nodes and vessels: No retroperitoneal or mesenteric adenopathy by size criteria. Aorta and inferior vena cava are normal in caliber. Abdominal wall: No ventral hernias. Pelvis: No free pelvic fluid. No inguinal hernias or adenopathy. Uterus is atrophic. Ovaries are not visualized. Bones: No suspicious bony lesions. No vertebral body compression fractures. Degenerative changes are present in the lower thoracic spine and lumbar spine. IMPRESSION: 1. No definitive CT findings to explain left flank pain. No renal stone or hydronephrosis. 2. A moderate amount of stool in colon. Dictated by: Denisa Hummel M.D. on 05/14/2019 at 20:27 Approved by: Denisa Hummel M.D. on 05/14/2019 at 20:31 [facility] Narrative Medical decision making narrative: Patient comes in with complaint of hematuria and right flank pain. patient's initial point of care urine and micro her not highly suspicious for infection although she does have hematuria with no clear cause. There is not an obvious signs mass, there is no obvious signs of kidney stones or other causes that would be causing these 2 in conjunction. There is no other causes that are clearly delineated with lab work or imaging such as a intra-abdominal process. Discussed with patient plan for course of antibiotics to cover for pyelonephritis, she was given Toradol and Tylenol here with some improvement. She is given 4 tablets of tramadol for breakthrough plain and plan for patient return if she was worsening. Patient was able to ambulate to the restroom without issue. Discharge Plan Departure Patient Disposition: Home Clinical Impression: Pyelonephritis Discharge Date/Time: 05/14/19 21:30 Instructions: DI for Kidney Infection Activity Restrictions/Additional Instructions: Follow up with your physician in the next 24-48 hours for recheck, call for an appointment. Take antibiotics until gone. You may take Tylenol up to a 1000 mg every 8 hours as needed for pain. You may also take Ultram which can make you sleepy so do not drive, perform hazardous activities or make any major decisions while taking this. Return to the emergency department for fevers greater than 100.4 F, rapidly worsening flank pain, abdominal pain, passing out, persistent vomiting, black or bloody stools, swelling in your extremities or other new or concerning symptoms. Prescriptions: New ciprofloxacin HCl 500 mg tablet 500 mg PO Q12H Qty: 14 RF: 0 No Action calcium carbonate 1,177 mg tablet,chewable 1,200 mg PO DAILY RF: 0 Pregnenolone (#PREGNENOLONE) 50 mg PO QDAY Qty: 0 RF: 0 FLAXSEED OIL (BIOFLAX) 1,000 mg PO BID Qty: 0 RF: 0 ASCORBIC ACID (VITAMIN C) 500 mg PO Q DAY Qty: 0 RF: 0 coenzyme Q10 [Co Q-10] 100 MG capsule 100 mg PO QDAY Qty: 0 RF: 0 BEE POLLEN/BIOTIN/BLACK COHO (WOMEN'S MULTIVITAMIN/MULTIMINERAL) 1 tab PO BID Qty: 0 RF: 0 CHOLECALCIFEROL (VITAMIN D3) 5,000 units PO QDAY Qty: 0 RF: 0 Vitamin E (VITAMIN E) 400 units PO QDAY Qty: 0 RF: 0 ketoconazole 2 % cream 0 Topical BID Qty: 60 RF: 3 atorvastatin 20 mg tablet 20 mg PO DAILY Qty: 90 RF: 1 sumatriptan succinate [Imitrex] 100 mg tablet 100 mg PO .COMPLEX Qty: 9 RF: 12 alendronate [Fosamax] 70 mg tablet 70 mg PO QWEEK Qty: 4 RF: 5 acyclovir 400 mg tablet 400 mg PO BID PRN (Reason: cold sores) RF: 0 Referrals: Lorin Kelsey MD [Primary Care Provider] -
--- NOTE | 2019-05-14 19:33 | DI.CT.S_ITS ---
PROCEDURE: CT ABDOMEN PELVIS WO CON INDICATIONS: hematuria, flank pain, dizzy TECHNIQUE: Noncontrast 5 mm thick sections acquired from the diaphragms to the symphysis. 5 mm thick coronal and sagittal reformats were then performed. For radiation dose reduction, the following was used: automated exposure control, adjustment of mA and/or kV according to patient size. COMPARISON: None. FINDINGS: Image quality: Excellent. Lung bases: Lung bases are clear. Heart size is normal. Urinary system: Both kidneys are normal in size. No kidney stones. No hydronephrosis or perinephric fat stranding. Both ureters appear non-dilated throughout their expected courses. Bladder wall thickness is normal; no calcified bladder stones. Other solid organs: Liver is normal in size. Gallbladder wall. Pancreas is normal in contours. Spleen is normal in size. No adrenal nodules. Peritoneum and bowel: Unenhanced bowel loops demonstrate normal wall thickness and caliber. There is a moderate amount of stool in colon. No free fluid or air. Nodes and vessels: No retroperitoneal or mesenteric adenopathy by size criteria. Aorta and inferior vena cava are normal in caliber. Abdominal wall: No ventral hernias. Pelvis: No free pelvic fluid. No inguinal hernias or adenopathy. Uterus is atrophic. Ovaries are not visualized. Bones: No suspicious bony lesions. No vertebral body compression fractures. Degenerative changes are present in the lower thoracic spine and lumbar spine. IMPRESSION: 1. No definitive CT findings to explain left flank pain. No renal stone or hydronephrosis. 2. A moderate amount of stool in colon. Dictated by: Denisa Hummel M.D. on 05/14/2019 at 20:27 Approved by: Denisa Hummel M.D. on 05/14/2019 at 20:31
[2019-05-14 19:35] LABS: Bacteria Urine None Seen; RBC Urine None Seen (0-5/HPF); WBC Urine None Seen (0-5/HPF)
[2019-05-14 19:51] LABS: Add Manual Diff / Slide Review NO; Basophils Absolute Auto 0 /uL (0-100); Basophils Percent Auto 0.5 % (0-2); Eosinophils Absolute Auto 0 /uL (0-450); Eosinophils Percent Auto 0.2 % (2-4); Hematocrit 37.4 % (36-46); Hemoglobin 12.6 g/dL (12.0-16.0); Lymphocytes Absolute Auto 900 /uL (1100-4500); Mean Corpuscular HGB Conc 33.7 % (30-36); Mean Corpuscular Hemoglobin 30.5 PG (26-34); Mean Corpuscular Volume 90.5 fL (80-100); Monocytes Absolute Auto 400 /uL (0-900); Monocytes Percent Auto 4.3 % (3-14); Neutrophils Absolute Auto 8600 /uL (1500-7000); Platelet Count 280 X10^3/uL (150-400); Red Blood Cell Count 4.13 X10^6/uL (4.0-5.2); Red Cell Distribution Width 12.9 % (11.6-14.8)
[2019-05-14 19:54] LABS: Culture Indicated Urine Cult Not Indicated
[2019-05-14] MEDS: KETOROLAC 60 MG/2 ML VIAL 15 MG IV (19:54)
[2019-05-14] MEDS: ONDANSETRON 4 MG/2 ML INJ IV (19:54)
[2019-05-14] MEDS: SODIUM CHLORIDE 0.9% 1,000 ML 1000 ML IV (19:54)
[2019-05-14 19:55] LABS: INR 1.1 (0.9-1.3); Prothrombin Time 12.5 SECONDS (10.1-12.7)
[2019-05-14 19:57] LABS: PTT Partial Thromboplastin Tim 26 SECONDS (26.4-36.2)
[2019-05-14 19:59] LABS: Alanine Aminotransferase 24 IU/L (<35); Albumin Globulin Ratio 1.5 (1.0-2.8); Alkaline Phosphatase 33 U/L (38-126); Aspartate Aminotransferase 34 IU/L (14-36); BUN Creatinine Ratio 26.7 (6-22); Bilirubin Total 0.5 mg/dL (0.2-1.3); Blood Urea Nitrogen 16 mg/dL (7-17); Calcium 9.6 mg/dL (8.4-10.2); Carbon Dioxide 29 mmol/L (22-32); Chloride 97 mmol/L (98-107); Estimated Glomerular Filt Rate > 60.0 mL/min (>60); Globulin 3.3 g/dL (1.7-4.1); Glucose 132 mg/dL (80-110); HEMOLYSIS < 15 (0-50); Potassium 3.4 mmol/L (3.4-5.1); Sodium 134 mmol/L (137-145); Total Protein 8.3 g/dL (6.3-8.2)
[2019-05-14 20:48] VITALS: BP 154/72; PULSE 72; RESP 18; O2SAT 98
[2019-05-14] MEDS: ACETAMINOPHEN 325 MG TABLET 975 MG PO (20:57)
[2019-05-14] MEDS: CIPROFLOXACIN 500 MG TABLET PO (20:57)
[2019-05-14] MEDS: TRAMADOL 50 MG PREPACK 1 BOTTLE MISC (21:00)
== END 2019-05-14 21:30 | disposition home or self-care (01) ==
PROVIDERS: Emergency Provider Emergency Medicine; Family Provider Family Medicine; PCP Family Medicine
DX: N12 Tubulo-interstitial nephritis, not specified as acute or chronic (principal); R31.9 Hematuria, unspecified; R10.9 Unspecified abdominal pain; R42 Dizziness and giddiness
CPT/HCPCS: 36415; 74176; 80053; 81003; 81015; 85025; 85610; 85730; 87086; 96361; 96374; 96375; 99283; 99284; J1885; J2405

== ENCOUNTER → 2019-05-17 12:38 | Outpatient (CLI) | payer OTHER, MEDICARE, SELFPAY ==
[2019-05-17 14:39] LABS: Bacteria Urine None Seen; RBC Urine None Seen (0-5/HPF); WBC Urine None Seen (0-5/HPF)
[2019-05-17 15:38] LABS: Culture Indicated Urine Cult Not Indicated
== END ==
PROVIDERS: Family Provider Family Medicine; PCP Family Medicine; Visit Provider Family Medicine
DX: N12 Tubulo-interstitial nephritis, not specified as acute or chronic (principal)
CPT/HCPCS: 81015

== ENCOUNTER 2019-06-26 04:16 | Emergency (ER) | payer OTHER, MEDICARE, SELFPAY ==
[2019-06-26 04:35] VITALS: BP 126/76; PULSE 81; RESP 16; TEMP 36.8; O2SAT 100; BMI 24.7
[2019-06-26] MEDS: ONDANSETRON 4 MG ODT SL (04:56)
[2019-06-26] MEDS: HYDROGEN PEROXIDE 473 ML SOLUTION 15 ML TOP (04:56)
--- NOTE | 2019-06-26 05:11 | ED.ABDPAIN ---
HPI - Abdominal Pain General Chief Complaint: Abdominal Pain Stated Complaint: N/V, earache, fell Time Seen by Provider: 06/26/19 04:27 Source: patient Mode of arrival: Family Vehicle Limitations: no limitations History of Present Illness HPI narrative: The patient developed nausea yesterday. She has had several episodes of emesis since then. There is no associated diarrhea. She last vomited about 1 hour prior to arrival. She briefly passed out at that time. She has had right ear discomfort for about 1 week. With her discomfort is no drainage. There is no sinus pressure, visual changes or sore throat. She denies recent URI symptoms. She has no cough or chest discomfort. She denies palpitations. She is not experiencing abdominal pain. She has no chronic GI medical problems. Related Data Home Medications Medication Instructions Recorded Confirmed Pregnenolone (#PREGNENOLONE) 50 mg PO QDAY #0 04/21/11 05/17/19 ASCORBIC ACID (VITAMIN C) 500 mg PO Q DAY #0 05/12/11 05/17/19 BEE POLLEN/BIOTIN/BLACK COHO 1 tab PO BID #0 05/12/11 05/17/19 (WOMEN'S MULTIVITAMIN/MULTIMINERAL) FLAXSEED OIL (BIOFLAX) 1,000 mg PO BID #0 05/12/11 05/17/19 coenzyme Q10 [Co Q-10] 100 mg PO QDAY #0 05/12/11 05/17/19 CHOLECALCIFEROL (VITAMIN D3) 5,000 units PO QDAY #0 04/26/12 05/17/19 Vitamin E (VITAMIN E) 400 units PO QDAY #0 04/26/12 05/17/19 calcium carbonate 1,177 mg 1,200 mg PO DAILY tab 05/26/18 05/17/19 chewable tablet acyclovir 400 mg tablet 400 mg PO BID PRN tab 07/11/18 05/17/19 Previous Rx's Medication Instructions Recorded ketoconazole 0 TOPICAL BID #60 gm 01/27/17 atorvastatin 20 mg tablet 20 mg PO DAILY #90 tab 11/29/18 sumatriptan succinate 100 mg tablet 100 mg PO .COMPLEX #9 tab 03/06/19 alendronate 70 mg tablet 70 mg PO QWEEK #4 tab 03/11/19 ciprofloxacin HCl 500 mg PO Q12H #14 tab 05/14/19 meclizine 25 mg PO TID-QID PRN #20 tab 06/26/19 Allergies Allergy/AdvReac Type Severity Reaction Status Date / Time Sulfa (Sulfonamide Allergy Severe cold Verified 05/17/19 12:06 Antibiotics) sore/rash [SULFA (SULFONAMIDE ANTIBIOTICS)] Review of Systems Review of Systems ROS Unobtainable: All systems reviewed & are unremarkable except as noted in HPI and below Constitutional Constitutional: Denies chills, Denies fever(s), Denies lethargy and Denies weakness Eyes Eyes: Denies change in vision and Denies loss of vision ENT Ears, Nose, Mouth, and Throat: Reports otalgia and Denies sore throat Cardiovascular Cardiovascular: Denies chest pain, Denies lightheadedness, Denies palpitations and Denies dyspnea Respiratory Respiratory: Denies cough, Denies dyspnea and Denies wheezing Gastrointestinal Gastrointestinal: Denies abdominal pain, Denies change in bowel habits, Denies constipation, Denies diarrhea, Denies nausea and Reports vomiting Genitourinary Genitourinary: Denies hematuria, Denies dysuria and Denies flank pain Musculoskeletal Musculoskeletal: Denies back pain Integumentary/Breasts Skin/Breast: Denies pruritus, Denies erythema, Denies rash and Denies wounds Neurologic Neurologic: Denies loss of vision and Denies weakness Endocrine Endocrine: Denies palpitations Allergic/Immunologic Allergic/Immunologic: Denies wheezing Patient History Medical History Anemia (Resolved 1969) Chicken pox (Resolved) Foot pain (Chronic) Hyperlipidemia (Chronic) Migraines (Chronic 2004) Mumps (Resolved) Osteoporosis (Chronic) RLS (restless legs syndrome) (Chronic) Shoulder pain (Chronic 2004) Urinary incontinence (Resolved) Surgical History Anesthesia (Resolved) History of breast surgery (Resolved 2007) History of urinary tract surgery (Resolved 1999) Status post bunionectomy (Resolved 1984) Status post colonoscopy (Resolved 2010) Family History Mother CAD (coronary artery disease) DMII (diabetes mellitus, type 2) Congestive heart failure Heart attack Father Lung cancer Brother DMII (diabetes mellitus, type 2) Hypertension Hyperlipidemia Pneumonia Brother DMII (diabetes mellitus, type 2) Hypertension Alzheimer's disease History of kidney cancer Mini stroke Brother History of eye surgery History of back surgery Brother Cirrhosis of liver Brother Accidental discharge of gun Brother Pneumonia Sister Kidney tumor (benign) Sister DMII (diabetes mellitus, type 2) Hypertension Hyperlipidemia Mini stroke Breast cancer Bladder cancer Factor V Leiden Sister DMII (diabetes mellitus, type 2) Factor V Leiden Hyperlipidemia Hypertension Hypertriglyceridemia GERD (gastroesophageal reflux disease) History of neck surgery Grandmother Asthma, severe Grandfather Heart attack Grandmother Heart attack Grandfather No problems noted. Social History marital status: household members: spouse lives independently: Yes caregiver/support person: No housing: house occupational status: employed Smoking Status: Never smoker second hand exposure: No alcohol intake: current substance use type: does not use Smoking Status: Never smoker alcohol intake frequency: a few times a month Substance Use Type: does not use Exam Initial Vital Signs Initial Vital Signs: Vital Signs Temperature 98.3 F 06/26/19 04:35 Pulse Rate 81 06/26/19 04:35 Respiratory Rate 16 06/26/19 04:35 Blood Pressure 126/76 06/26/19 04:35 Pulse Oximetry 100 06/26/19 04:35 Const General: cooperative and well developed Nutritional Appearance: well nourished [facility] Head: normal to inspection, normocephalic and atraumatic Ears: EAC abnormal (Bilateral cerumen impaction.) Nose: external nose normal Mouth: oral mucosae normal Eyes General: appearance normal, both eyes and all related structures Eyelids: eyelids normal Conjunctivae: conjunctivae normal Sclera: sclerae normal Pupils: PERRL EOM: EOM intact bilaterally Neck Neck: No lymphadenopathy Resp Effort & Inspection: normal respiratory effort and able to speak in complete sentences Auscultation: clear to auscultation bilaterally, no rales, no rhonchi and no wheezes Cardio Rate: regular rate Rhythm: regular rhythm Heart Sounds: S1 normal, S2 normal, no click, no gallops, no murmurs and no rubs Pulses: normal peripheral pulses GI Inspection: non-distended Palpation: soft, no hepatosplenomegaly, No guarding and No tender Auscultation: normal bowel sounds Back/Spine/Pelvis Back: No CVA tenderness Skin General: no rashes or lesions noted Neuro General: alert, oriented x3, gait normal and no focal motor deficits Speech: speech normal Extrem General: full ROM, no pedal edema and no calf tenderness Course Course Course Narrative: The patient's ear canals were irrigated clear. TMs are noted to be normal bilaterally. Hallpike exams were done. She was moderately positive bilaterally. She has ongoing right ear pain, at the TMJ. Nausea resolved with Zofran. Meclizine has improved the dizziness. She was given Tylenol for pain. She has improved, she will be discharged on meclizine. Orders Ordered: Discontinued Medications Acetaminophen (Tylenol) 650 mg PO NOW ONE Stop: 06/26/19 06:49 Hydrogen Peroxide/Benzyl Alcohol (Hydrogen Peroxide) 15 ml TOP NOW ONE Stop: 06/26/19 04:47 Last Admin: 06/26/19 04:56 Dose: 15 ml Documented by: ALPESH Meclizine HCl (Antivert) 25 mg PO NOW ONE Stop: 06/26/19 06:04 Last Admin: 06/26/19 06:17 Dose: 25 mg Documented by: ALPESH Ondansetron HCl (Zofran Odt) 4 mg SL NOW ONE Stop: 06/26/19 04:41 Last Admin: 06/26/19 04:56 Dose: 4 mg Documented by: ALPESH Vital Signs Vital signs: Vital Signs - 8 hr 06/26/19 04:35 Temperature 98.3 F Pulse Rate 81 Respiratory Rate 16 Blood Pressure 126/76 Pulse Oximetry 100 Discharge Plan Departure Patient Disposition: Home Clinical Impression: Acute labyrinthitis Qualifiers: Laterality: bilateral Qualified Code(s): H83.03 - Labyrinthitis, bilateral Instructions: DI for Labyrinthitis Activity Restrictions/Additional Instructions: Meclizine every 6 hours as needed for nausea or dizziness. Tylenol every 4 hours as needed for headache. Rest, drink plenty fluids and stay well hydrated. Return the ER as needed. Prescriptions: New meclizine 25 mg tablet,chewable 25 mg PO TID-QID PRN (Reason: dizziness) Qty: 20 RF: 0 No Action calcium carbonate 1,177 mg tablet,chewable 1,200 mg PO DAILY RF: 0 Pregnenolone (#PREGNENOLONE) 50 mg PO QDAY Qty: 0 RF: 0 FLAXSEED OIL (BIOFLAX) 1,000 mg PO BID Qty: 0 RF: 0 ASCORBIC ACID (VITAMIN C) 500 mg PO Q DAY Qty: 0 RF: 0 coenzyme Q10 [Co Q-10] 100 MG capsule 100 mg PO QDAY Qty: 0 RF: 0 BEE POLLEN/BIOTIN/BLACK COHO (WOMEN'S MULTIVITAMIN/MULTIMINERAL) 1 tab PO BID Qty: 0 RF: 0 CHOLECALCIFEROL (VITAMIN D3) 5,000 units PO QDAY Qty: 0 RF: 0 Vitamin E (VITAMIN E) 400 units PO QDAY Qty: 0 RF: 0 ketoconazole 2 % cream 0 Topical BID Qty: 60 RF: 3 atorvastatin 20 mg tablet 20 mg PO DAILY Qty: 90 RF: 1 sumatriptan succinate [Imitrex] 100 mg tablet 100 mg PO .COMPLEX Qty: 9 RF: 12 alendronate [Fosamax] 70 mg tablet 70 mg PO QWEEK Qty: 4 RF: 5 acyclovir 400 mg tablet 400 mg PO BID PRN (Reason: cold sores) RF: 0 ciprofloxacin HCl 500 mg tablet 500 mg PO Q12H Qty: 14 RF: 0 Referrals: Lorin Kelsey MD [Primary Care Provider] -
[2019-06-26] MEDS: MECLIZINE HCL 12.5 MG TABLET 25 MG PO (06:17)
[2019-06-26] MEDS: ACETAMINOPHEN 325 MG TABLET 650 MG PO (07:13)
[2019-06-26 07:15] VITALS: BP 113/50; PULSE 72; RESP 15; O2SAT 98
== END 2019-06-26 07:17 | disposition home or self-care (01) ==
PROVIDERS: Emergency Provider Emergency Medicine; PCP Family Medicine
DX: H83.03 Labyrinthitis, bilateral (principal)
CPT/HCPCS: 99283

== ENCOUNTER → 2019-08-27 11:38 | Outpatient (CLI) | payer OTHER, MEDICARE, SELFPAY ==
--- NOTE | 2019-08-27 | DI.MG.S_ITS ---
BILATERAL DIGITAL SCREENING MAMMOGRAM 3D/2D WITH CAD: 08/27/2019 CLINICAL: Routine screening. Family history of breast cancer. Comparison is made to exams dated: 08/22/2018 mammogram, 08/21/2017 mammogram, and 08/01/2016 mammogram - [facility]. There are scattered fibroglandular elements in both breasts. Current study was also evaluated with a Computer Aided Detection (CAD) system. There is a biopsy clip in the left breast. No significant masses, calcifications, or other findings are seen in either breast. There has been no significant interval change. IMPRESSION: NEGATIVE There is no mammographic evidence of malignancy. A 1 year screening mammogram is recommended. This exam was interpreted at Station ID: [id number]. NOTE: For mammograms, a report in lay terms will be sent to the patient. Approximately 15% of breast malignancies will not be visualized mammographically. In the management of a palpable breast mass, a negative mammogram must not discourage biopsy of a clinically suspicious lesion. Electronically Signed By: Mac david/omar:08/27/2019 12:47:42 letter sent: Normal Exam ACR BI-RADS Category 1: Negative [id number]
== END ==
PROVIDERS: PCP Family Medicine; Referring Provider Family Medicine; Visit Provider Family Medicine
DX: Z12.31 Encounter for screening mammogram for malignant neoplasm of breast (principal); Z80.3 Family history of malignant neoplasm of breast
CPT/HCPCS: 77063; 77067

== ENCOUNTER → 2020-02-28 10:01 | Outpatient (CLI) | payer OTHER, MEDICARE, SELFPAY ==
[2020-02-28 10:15] LABS: Bacteria Urine None Seen
[2020-02-28 10:44] LABS: Appearance Urine UA CLEAR; Bilirubin Urine UA NEGATIVE (NEGATIVE); Color Urine UA YELLOW; Glucose Urine UA NEGATIVE (Negative); Ketones Urine UA NEGATIVE (NEGATIVE); Leukocyte Esterase Urine UA NEGATIVE (NEGATIVE); Nitrite Urine UA NEGATIVE (Negative); Occult Blood Urine UA TRACE-LYSED (Negative); Protein Urine UA NEGATIVE (Negative); Specific Gravity Urine UA <=1.005 (1.000-1.035); Urobilinogen Urine UA 0.2 E.U./dL (0.2)
[2020-02-28 11:09] LABS: Culture Indicated Urine Cult Not Indicated; RBC Urine 0-1/HPF (0-5/HPF); WBC Urine 0-1/HPF (0-5/HPF); pH Urine UA 6.5 (4.5-8.0)
== END ==
PROVIDERS: PCP Family Medicine; Referring Provider Family Medicine; Visit Provider Family Medicine
DX: R30.0 Dysuria (principal); R35.0 Frequency of micturition; R35.8 Other polyuria
CPT/HCPCS: 81001

== ENCOUNTER → 2020-07-09 14:16 | Outpatient (CLI) | payer OTHER, MEDICARE, SELFPAY ==
[2020-07-09 16:37] LABS: Hemoglobin A1C% w Est Avg Glu 5.4 % (4.0-6.0)
== END ==
PROVIDERS: PCP Family Medicine; Referring Provider Family Medicine; Visit Provider Family Medicine
DX: E16.2 Hypoglycemia, unspecified (principal); R73.9 Hyperglycemia, unspecified
CPT/HCPCS: 36415; 83036

== ENCOUNTER → 2020-09-01 14:38 | Outpatient (CLI) | payer OTHER, MEDICARE, SELFPAY ==
--- NOTE | 2020-09-01 14:40 | DI.MG.S_ITS ---
BILATERAL DIGITAL SCREENING MAMMOGRAM 3D/2D WITH CAD: 09/01/2020 CLINICAL: Routine screening. Family history of breast cancer. Comparison is made to exams dated: 08/27/2019 mammogram, 08/22/2018 mammogram, and 08/21/2017 mammogram - [facility]. There are scattered fibroglandular elements in both breasts. Current study was also evaluated with a Computer Aided Detection (CAD) system. There is an oval low density focal asymmetry with an indistinct and circumscribed margin in the right breast at 10 o'clock middle depth. No other significant masses, calcifications, or other findings are seen in either breast. IMPRESSION: INCOMPLETE: NEEDS ADDITIONAL IMAGING EVALUATION The oval low density focal asymmetry in the right breast is indeterminate. Mediolateral and spot compression views as well as additional views with possible ultrasound are recommended. This exam was interpreted at Station ID: [id number]. NOTE: For mammograms, a report in lay terms will be sent to the patient. Approximately 15% of breast malignancies will not be visualized mammographically. In the management of a palpable breast mass, a negative mammogram must not discourage biopsy of a clinically suspicious lesion. Electronically Signed By: Mac david/omar:09/01/2020 15:30:52 letter sent: Additional Imaging Needed ACR BI-RADS Category 0: Incomplete 3340F
--- NOTE | 2020-09-01 14:40 | DI.RAD.S_ITS ---
PROCEDURE: XR DEXA AXIAL SKELETON INDICATIONS: screening COMPARISON: [facility], CR, XR DEXA AXIAL SKELETON, 03/05/2018, 15:36. FINDINGS: This blank DEXA report has been sent in error by the PACS system. The correct and complete report will be forthcoming in 1-2 days. Thank you for your patience and understanding. Dictated by: Melody Montgomery MD, PhD on 09/02/2020 at 17:26 Approved by: Melody Montgomery MD, PhD on 09/02/2020 at 17:26
== END ==
PROVIDERS: PCP Family Medicine; Referring Provider Family Medicine; Visit Provider Family Medicine
DX: Z12.31 Encounter for screening mammogram for malignant neoplasm of breast (principal); Z80.3 Family history of malignant neoplasm of breast; M85.852 Other specified disorders of bone density and structure, left thigh; Z78.0 Asymptomatic menopausal state; Z82.62 Family history of osteoporosis
CPT/HCPCS: 77063; 77067; 77080

== ENCOUNTER → 2020-09-02 09:30 | Outpatient (CLI) | payer OTHER, MEDICARE, SELFPAY ==
--- NOTE | 2020-09-02 09:31 | DI.RAD.S_ITS ---
PROCEDURE: FL BARIUM SWALLOW W SPEECH INDICATIONS: difficulty swallowing COMPARISON: None. TECHNIQUE: Examination was conducted in conjunction with speech pathology per standard protocol. In the lateral projection, filming was performed of the patient swallowing. AP projection filming may also be performed with patient swallowing. COMPARISON: FINDINGS: Function: The oral preparatory phase appears normal, with proper containment. The subsequent oral propulsive phase, pharyngeal phase, and esophageal phase of swallowing also appear normal with all proffered substances. Flash laryngotracheal penetration noted with swallowing of thin liquids. No laryngotracheal aspiration. Pooling noted in the vallecula bilaterally which was not completely cleared with repeat swallows. Morphology: No cricopharyngeal bar is identified. No cervical esophageal webs. No Zenker's diverticulum. No strictures. IMPRESSION: 1. Laryngotracheal penetration without lakeisha aspiration. 2. Bilateral vallecular pooling which is not completely cleared with repeat swallows. 3. 13 millimeter barium tablet readily passed from the oral cavity to the stomach. Dictated by: Melody Montgomery MD, PhD on 09/02/2020 at 11:18 Approved by: Melody Montgomery MD, PhD on 09/02/2020 at 11:20
--- NOTE | 2020-09-02 12:17 | ST.SWALLOW ---
Visit Care Team Role Provider Type Lorin Kelsey MD Attending Provider Physician Primary Care Provider Referring Provider Specialty: Family Practice Address: [address] [place] [address], [facility], [place], [address] Email: [email or web address] Modified Barium Swallow Study ELEMENT BURNER Modified Barium Swallow Study Start: 09/02/20 10:54 Freq: Status: Active Protocol: Document 09/02/20 10:54 LNK (Rec: 09/02/20 12:17 LNK [id number]) Modified Barium Swallow Study Total Time Visit Start Time 10:00 Visit Stop Time 10:30 Total Visit Minutes [address] Kelsey Reason for Referral difficulty swallowing Setting Setting Outpatient Care Patient Information Identification Type Name,Date of Patient History Pt was seen for a Modified Barium Swallow Study at the referral of Dr. Kelsey. According to the pt and review of medical records, the pt has been having a difficult time swallowing pills, they get caught most of the way down her esophagus. She sometimes has the same issue when swallowing food as well. Less likely with liquids. It has been an issue for the past month. Pt describes pain after swallowing located near the sternal notch and at mid-chest. She was diagnosed with GERD by her ENT. She notes that PPI medications have not been effective. Finally, the pt stated that, lately, she has been burping frequently. Subjective Observations Pt was seated in the fluoroscopy chair. Instructions and procedures were described for the pt who indicated she understood and agreed to proceed. Patient Positioning Position View Lateral Imaging Lateral View Textures Administered Trials Presented Thin Liquid via Spoon,Thin Liquid via Cup,Pudding Thick Liquid via Spoon,Regular Textures,Barium Tablet Oral Phase Source: MBSIMP (TM) (C) Bolus Specific Scoring Grid Lip Closure WFL Tongue Control During Bolus Hold WFL Bolus Prep/Mastication WFL Bolus Transport/Lingual Motion WFL A/P Lingual Propulsion Delay No Oral Residue Minimal Impairment Residue Clearing WFL Nasal Regurgitation No Additional Oral Phase Observations Informal observation indicated structures and function WNL. Natural teeth in good health and hygiene Pharyngeal Phase Source: MBSIMP (TM) (C) Bolus Specific Scoring Grid Delayed Initiation of Pharyngeal Swallow No Soft Palate Elevation No Impairment (WNL) Tongue Base Strength/Range of Motion Mild Impairment Residue Along the Tongue Base Yes Clearance of Residue Along Tongue Base Mild Impairment Laryngeal Elevation WFL Anterior Hyoid Movement Mild Impairment Epiglottic Range of Motion WFL Vallecular Residue Yes Clearance of Vallecular Residue Mild Impairment Laryngeal Vestibular Closure Mild Impairment Pharyngeal Stripping Wave Minimal Impairment Posterior Pharyngeal Wall Residue No Upper Esophageal Sphincter Opening WFL Residue in the Pyriform Sinuses No Esophageal Clearance Upright Position Mild Impairment Pharyngoesophageal Backflow Observed No Additional Pharyngeal Phase Observations Swallow response was prompt without premature spillage. Base of tongue strength was mildly impaired with reduced laryngopharyngeal contact. Laryngeal elevation was adequate; however there was reduced forward movement of the hyoid, impacting the epiglottic inversion and laryngeal seal. The epiglottis inverted completely, but flash penetration was noted x4 . No residue remained within the laryngeal vestibule and no aspiration was observed. Residual pooling was observed at the base of tongue, in the valeculla and pyriform sinuses . This residual pooling did clear with subsequent swallows . When swallowing abarium tablet, it was slightly delayed at the valeculla. Several cervical osteophytes were noted to alter the bolus flow of the upper esophagus. The osteophytes did not interfere with the bolus flow within the upper esophagus A/P View A/P View Observations Additional Observations No AP view. However, the barium tablet was followed from the UES to the stomach. The tablet moved through the esophagus and entered the stomach as expected Clinical Impressions Dysphagia Type mild pharyngeal dysphagia Findings The pt presented with a mild pharyngeal phase dysphagia, which may be age related. At one point, the pt stated that she felt something stick in her throat, pointing to the sternal notch. Minimal valecullar pooling was noted at that time. It did not appear that the the small amount of residue would result in the sense of globus she reported. The pt's primary complaint is of pain in two areas: near the sternal notch and at mid-chest. She also reports frequent burping. The results of the MBSS indicated mild pooling and lingual weakness which may be age-related. No aspiration was observed. Additionally it was observed that with all liquid trials, there was air swallow ed into the esophagus, which may explain the burping pt experiences. Swallowing therapy to may be effective regarding exercises to increase linguapharyngeal strength. However swallow therapy cannot address the pain she is experiencing. Recommendations Treatment Plan Recommended Referrals Primary Care Physician,GI Consult
== END ==
PROVIDERS: PCP Family Medicine; Referring Provider Family Medicine; Visit Provider Family Medicine
DX: R13.10 Dysphagia, unspecified (principal)
CPT/HCPCS: 74230; 92611

== ENCOUNTER → 2020-09-10 14:15 | Outpatient (CLI) | payer OTHER, MEDICARE, SELFPAY ==
--- NOTE | 2020-09-10 14:17 | DI.US.S_ITS ---
LIMITED ULTRASOUND OF RIGHT BREAST: 09/10/2020 CLINICAL: Patient returns today to evaluate a focal asymmetry in the right breast. Comparison is made to exams dated: 09/01/2020 mammogram, 08/27/2019 mammogram, 08/22/2018 mammogram, 08/21/2017 mammogram, and 08/01/2016 mammogram - [facility]. Ultrasound of the right breast 9-11 o'clock region was performed. There is a benign cyst in the right breast at 11 o'clock middle depth. IMPRESSION: BENIGN There is no sonographic evidence of malignancy. The cyst in the right breast is benign. Return to annual screening schedule is recommended. This exam was interpreted at Station ID: [id number]. Electronically Signed By: Gus Ferguson M.D., jr/omar:09/10/2020 15:15:48 letter sent: Normal Exam Ultrasound BI-RADS: 2 Benign
--- NOTE | 2020-09-10 14:17 | DI.MG.S_ITS ---
UNILATERAL RIGHT DIGITAL DIAGNOSTIC MAMMOGRAM 3D/2D WITH ADDITIONAL VIEWS: 09/10/2020 CLINICAL: Additional evaluation requested from prior study. Comparison is made to exams dated: 09/01/2020 mammogram, 08/27/2019 mammogram, and 08/22/2018 mammogram - [facility]. There are scattered fibroglandular elements in right breast. There is an oval low density focal asymmetry in the right breast at 10 o'clock middle depth. No other significant masses or calcifications are seen in the breast. IMPRESSION: INCOMPLETE: NEEDS ADDITIONAL IMAGING EVALUATION The oval low density focal asymmetry in the right breast most likely is a cyst and is indeterminate. An ultrasound is recommended. This exam was interpreted at Station ID: [id number]. NOTE: For mammograms, a report in lay terms will be sent to the patient. Approximately 15% of breast malignancies will not be visualized mammographically. In the management of a palpable breast mass, a negative mammogram must not discourage biopsy of a clinically suspicious lesion. Electronically Signed By: Gus Ferguson M.D. jr/:09/10/2020 15:13:57 letter sent: Additional Imaging Needed ACR BI-RADS Category 0: Incomplete 3340F
== END ==
PROVIDERS: PCP Family Medicine; Referring Provider Family Medicine; Visit Provider Family Medicine
DX: N60.01 Solitary cyst of right breast (principal)
CPT/HCPCS: 76642; 77065; G0279

== ENCOUNTER → 2020-09-17 11:43 | Outpatient (CLI) | payer OTHER, MEDICARE, SELFPAY ==
[2020-09-17 11:54] LABS: Bacteria Urine None Seen
[2020-09-17 13:11] LABS: Appearance Urine UA CLEAR; Bilirubin Urine UA NEGATIVE (NEGATIVE); Color Urine UA YELLOW; Glucose Urine UA NEGATIVE (Negative); Ketones Urine UA NEGATIVE (NEGATIVE); Leukocyte Esterase Urine UA NEGATIVE (NEGATIVE); Nitrite Urine UA NEGATIVE (Negative); Occult Blood Urine UA TRACE-LYSED (Negative); Protein Urine UA NEGATIVE (Negative); Urobilinogen Urine UA 0.2 E.U./dL (0.2)
[2020-09-17 13:46] LABS: Culture Indicated Urine Cult Not Indicated; RBC Urine 0-1/HPF (0-5/HPF); Squamous Epithelial Cell Urine 0-1 /HPF (0-5/HPF); WBC Urine 0-1/HPF (0-5/HPF)
== END ==
PROVIDERS: PCP Family Medicine; Referring Provider Family Medicine; Visit Provider Family Medicine
DX: R30.0 Dysuria (principal)
CPT/HCPCS: 81001

== ENCOUNTER → 2020-10-02 15:58 | Outpatient (CLI) | payer OTHER, MEDICARE, SELFPAY ==
[2020-10-02 16:25] LABS: COVID19 -Nasal RAPID Negative (Negative)
== END ==
PROVIDERS: PCP Family Medicine; Visit Provider Surgery
DX: Z01.812 Encounter for preprocedural laboratory examination (principal); Z20.822 Contact with and (suspected) exposure to COVID-19
CPT/HCPCS: 87635; C9803

== ENCOUNTER 2020-10-05 07:14 | Day surgery (SDC) | payer OTHER, MEDICARE, SELFPAY ==
--- NOTE | 2020-10-05 | PATH_ITS ---
[facility] Accession Number: [id number] . 01 Material submitted: . esophagus, E-G Junction - GE JUNCTION . 02 Diagnosis: Gastroesophageal Junction, Biopsy: Squamocolumnar junctional mucosa with columnar foveolar hyperplasia, consistent with hyperplastic polyp in the appropriate endoscopic setting. Negative for intestinal metaplasia. Negative for dysplasia and malignancy. [facility] 10/12/2020 1159 Local . 02 Electronically signed: . Veronica Dey MD, Pathologist NPI- [id number] . 01 Gross description: . The specimen is received in formalin labeled GE junction and consists of two riojas fragments of soft tissue, measuring 0.4 x 0.3 x 0.2 cm in aggregate. The specimen is entirely submitted in cassette A1. ([id number]) /[facility] 10/06/2020 1655 Local . 02 Pathologist provided ICD-10: R13.10 . 02 CPT . 047777 Performed at: 01 [facility] [address], [place], [place] [id number] MD Mac Pérez MD Phone: [phone] Performed at: 02 [facility] [address] [place], [place] [id number] MD Veronica Dey MD Phone: [phone]
[2020-10-05] MEDS: LACTATED RINGERS 1,000 ML 200 ML IV (07:37)
[2020-10-05 07:38] VITALS: BP 158/76; PULSE 71; RESP 12; TEMP 37; O2SAT 100; BMI 25.1
--- NOTE | 2020-10-05 08:23 | PM.PREOP ---
Pre-operative Note Interval Note History & Physical reviewed/Exam performed by Physician: Yes Changes to H&P: No
[2020-10-05] MEDS: fentaNYL 250 MCG/5 ML INJ IV (08:32)
[2020-10-05] MEDS: MIDAZOLAM 5 MG/5 ML VIAL IV (08:32)
[2020-10-05] MEDS: LIDOCAINE 4% SOLN 50 ML 20 ML TOP (08:38)
--- NOTE | 2020-10-05 08:43 | PM.OP.ENDO ---
Operative Date/Time/Diagnoses Date of procedure: 10/05/20 Time of procedure: 08:43 Pre-op diagnosis: Esophageal dysphagia Post-op diagnosis: other (GERD) Procedure & Clinicians Study performed: Esophagoduodenoscopy Same procedure as scheduled: Yes Indications: Esophageal dysphagia Surgeon: Zeb Hernandez Procedure Notes Procedure in detail: Patient placed in left lateral decubitus position. Time out was performed. Procedural sedation was administered with Versed and Fentanyl. A bite block was placed. the scope was inserted into the mouth and advanced through the esophagus and into the stomach. The pylorus was intubated and the duodenum was normal to the 2nd portion. The scope was retroflexed within the stomach and there was a small hiatal hernia. No ulcers, or gastritis. The scope was withdrawn into the esophagus the Z line was seen at 40 cm from the incisions. There was no lakeisha Venegas's there was mild esophagitis near the GE junction biopsy was performed with forceps.. Stomach was desufflated and scope removed. Vocal cords were mildly inflamed. Patient tolerated procedure well. Specimen(s): other (GE junction) Complications: none Impression: GERD, esophagitis Post-procedure Plan for aftercare: Start Pepcid Disposition: same day surgery
[2020-10-05 08:46] VITALS: BP 139/67; PULSE 60; RESP 11; TEMP 36.9; O2SAT 98
[2020-10-05 08:51] VITALS: BP 129/70; PULSE 64; RESP 14; O2SAT 97
[2020-10-05 08:56] VITALS: BP 133/62; PULSE 65; RESP 12; O2SAT 96
[2020-10-05 09:03] VITALS: BP 133/71; PULSE 65; RESP 14; O2SAT 97
[2020-10-05 09:17] VITALS: BP 125/64; PULSE 69; RESP 14; TEMP 36.6; O2SAT 97
--- NOTE | 2020-10-08 14:40 | PM.HP.1 ---
History of Present Illness History of Present Illness Date Patient Seen: 10/05/20 Time Patient Seen: 14:41 Chief complaint: EGD Narrative: 10/06/20-no interval changes in health. 09/02/20- 70-year-old female history of GERD referred for evaluation of dysphagia. She has a sensation that solid food is becoming stuck in her mid esophagus. This is been going on for at least 1 year but worse in the past 1 month. She has seen ENT last year where she had a examination of her oropharynx and was noted to have some signs of reflux on examination. She has been taking Pepcid for the past 1 week. She has never had prior EGD nor dilation. They are without hematemsis, melena, hematocheiza, anemia, anorexia, unexplained weight loss, odynophagia, persistent vomiting or gastrointestinal cancer in a first degree relative. Patient History Medical History Anemia (1969) Chicken pox Foot pain Hyperlipidemia Migraines (2004) Mumps Osteoporosis RLS (restless legs syndrome) Shoulder pain (2004) Urinary incontinence Surgical History Anesthesia History of breast surgery (2007) History of urinary tract surgery (1999) Status post bunionectomy (1984) Status post colonoscopy (2010) Family & Social History Family History Mother CAD (coronary artery disease) DMII (diabetes mellitus, type 2) Congestive heart failure Heart attack Father Lung cancer Brother DMII (diabetes mellitus, type 2) Hypertension Hyperlipidemia Pneumonia Brother DMII (diabetes mellitus, type 2) Hypertension Alzheimer's disease History of kidney cancer Mini stroke Brother History of eye surgery History of back surgery Brother Cirrhosis of liver Brother Accidental discharge of gun Brother Pneumonia Sister Kidney tumor (benign) Sister DMII (diabetes mellitus, type 2) Hypertension Hyperlipidemia Mini stroke Breast cancer Bladder cancer Factor V Leiden Sister DMII (diabetes mellitus, type 2) Factor V Leiden Hyperlipidemia Hypertension Hypertriglyceridemia GERD (gastroesophageal reflux disease) History of neck surgery Grandmother Asthma, severe Grandfather Heart attack Grandmother Heart attack Grandfather No problems noted. Social History: household members spouse lives independently Yes caregiver/support person No Tobacco & Substance use: Smoking Status Never smoker alcohol intake current alcohol intake frequency a few times a week Substance Use Type does not use Meds Home Medications and Allergies Home Medications Medication Instructions Recorded Confirmed Type ASCORBIC ACID (VITAMIN C) 500 mg PO Q DAY #0 05/12/11 10/06/20 History BEE POLLEN/BIOTIN/BLACK COHO 1 tab PO BID #0 05/12/11 10/06/20 History (WOMEN'S MULTIVITAMIN/MULTIMINERAL) FLAXSEED OIL (BIOFLAX) 1,000 mg PO BID #0 05/12/11 10/06/20 History coenzyme Q10 [Co Q-10] 100 mg PO QDAY #0 05/12/11 10/06/20 History CHOLECALCIFEROL (VITAMIN D3) 5,000 units PO QDAY #0 04/26/12 10/06/20 History Vitamin E (VITAMIN E) 400 units PO QDAY #0 04/26/12 10/06/20 History acyclovir 400 mg tablet 400 mg PO BID PRN #20 tab 11/15/19 10/06/20 Rx alendronate 70 mg tablet See Rx Instructions .ROUTE 08/03/20 10/06/20 Rx .COMPLEX #12 tab sumatriptan succinate 100 mg tablet 100 mg PO .COMPLEX #9 tab 09/07/20 10/06/20 Rx atorvastatin 20 mg tablet See Rx Instructions .ROUTE 09/18/20 10/06/20 Rx .COMPLEX #90 tab carbonyl iron-calcium 65 tab PO DAILY 10/05/20 10/06/20 History famotidine [Pepcid AC] 20 mg PO DAILY #90 tab 10/05/20 10/06/20 Rx CMP Estriol Vaginal Cream 0.01% See Rx Instructions .ROUTE 10/06/20 Rx .COMPLEX #30 g estradiol 1 g VAGINAL DAILY #42.5 g 10/06/20 10/06/20 Rx prasterone (dhea) 25 mg tablet 10 mg PO DAILY tab 10/06/20 10/06/20 History Allergies Allergy/AdvReac Type Severity Reaction Status Date / Time omeprazole [From Prilosec] Allergy Severe Throat Verified 10/06/20 09:35 swelling Sulfa (Sulfonamide Allergy Intermediate cold Verified 10/06/20 09:35 Antibiotics) sore/rash [SULFA (SULFONAMIDE ANTIBIOTICS)] Review of Systems Review of Systems ROS: Yes All systems reviewed with the patient and are negative except as otherwise documented Exam Vital Signs (past 8 hours): Oxygen Delivery Method Room Air Narrative Exam Narrative: GENERAL-well developed adult woman, no acute distress HEENT-no scleral icterus, hearing intact NECK-no JVD, trachea midline CVS- regular rate, no peripheral edema RESP-unlabored respiratory effort, no audible wheezing GI-soft, nontender nondistended MSK-no cyanosis or clubbing, extremities without deformity SKIN-warm, dry NEURO-alert and oriented, no focal deficits PYSCH-Appropriate mood and affect Assessment & Plan Assessment & Plan narrative: 70-year-old female history of reflux and new esophageal dysphagia. We discussed common causes of esophageal dysphagia including stricture, esophagitis, benign and malignant esophageal masses and functional disorders. I recommended that we proceed with esophagoduodenoscopy to evaluate for any intra luminal pathology with possible biopsy and dilation. Technical details of the procedure were discussed. Procedural risks including bleeding, infection, missed diagnosis, esophageal perforation, aspiration, heart attack , stroke and were discussed. Her questions have been answered and she is in agreement with this plan.
== END 2020-10-05 09:24 | disposition home or self-care (01) ==
PROVIDERS: PCP Family Medicine; Referring Provider Family Medicine; Visit Provider Surgery
PROC: 0DJ08ZZ Inspection of Upper Intestinal Tract, Via Natural or Artificial Opening Endoscopic (ICD-10-PCS; CPT 43235; principal; 2020-10-05 08:30)
DX: K44.9 Diaphragmatic hernia without obstruction or gangrene; K21.00 Gastro-esophageal reflux disease with esophagitis, without bleeding; E78.5 Hyperlipidemia, unspecified
CPT/HCPCS: 43235; 43239; J2250; J3010

== ENCOUNTER → 2020-12-22 10:36 | Outpatient (CLI) | payer OTHER, MEDICARE, SELFPAY ==
--- NOTE | 2020-12-22 10:38 | DI.RAD.S_ITS ---
PROCEDURE: XR LUMBAR SPINE MIN 4V INDICATIONS: low back pain, right side pain below the waist TECHNIQUE: 5 views of the lumbar spine were acquired, including bilateral oblique views. COMPARISON: [facility], , -SPINE 2-3 VIEWS, 08/02/2016, 15:46. FINDINGS: Bones: 5 nonrib-bearing vertebrae are present. There is mild, grade 1 anterolisthesis of L4 on L5, and otherwise normal alignment. Multilevel disc space narrowing and endplate osteophyte formation throughout the lumbar spine. Facet hypertrophy throughout the mid and lower lumbar spine as well as the visualized lower thoracic spine. No vertebral body compression fractures. No suspicious bony lesions. Soft tissues: Overlying bowel gas pattern is normal. No suspicious soft tissue calcifications. IMPRESSION: 1. Multilevel degenerative disc and facet disease. 2. No acute fracture. No osseous lesion. If symptoms and/or clinical suspicion for pathology persist, further assessment with repeat, or advanced imaging (e.g., CT, MRI, or bone scan) may be helpful for further assessment. Dictated by: Alfonzo Delatorre M.D. on 12/22/2020 at 11:30 Approved by: Alfnozo Delatorre M.D. on 12/22/2020 at 11:31
== END ==
PROVIDERS: PCP Family Medicine; Referring Provider Family Medicine; Visit Provider Family Medicine
DX: M53.3 Sacrococcygeal disorders, not elsewhere classified (principal); M51.36 Other intervertebral disc degeneration, lumbar region; M54.5 Low back pain; G89.29 Other chronic pain
CPT/HCPCS: 72110

== ENCOUNTER → 2021-07-12 11:01 | Outpatient (CLI) | payer OTHER, MEDICARE, SELFPAY | PROVIDERS: PCP Family Medicine; Referring Provider Physician Assistant; Visit Provider Physician Assistant | DX: J02.9 Acute pharyngitis, unspecified (principal) | CPT/HCPCS: 87070 ==

== ENCOUNTER → 2021-09-13 09:56 | Outpatient (CLI) | payer OTHER, MEDICARE, SELFPAY ==
--- NOTE | 2021-09-13 09:58 | DI.MG.S_ITS ---
BILATERAL DIGITAL SCREENING MAMMOGRAM 3D/2D WITH CAD: 09/13/2021 CLINICAL: Routine screening. Family history of breast cancer. Comparison is made to exams dated: 09/10/2020 mammogram, 09/01/2020 mammogram, 08/27/2019 mammogram, and 08/22/2018 mammogram - [facility]. There are scattered fibroglandular elements in both breasts. Current study was also evaluated with a Computer Aided Detection (CAD) system. There is a biopsy clip in the left breast. No significant masses, calcifications, or other findings are seen in either breast. There has been no significant interval change. IMPRESSION: NEGATIVE There is no mammographic evidence of malignancy. A 1 year screening mammogram is recommended. This exam was interpreted at Station ID: [id number]. NOTE: For mammograms, a report in lay terms will be sent to the patient. Approximately 15% of breast malignancies will not be visualized mammographically. In the management of a palpable breast mass, a negative mammogram must not discourage biopsy of a clinically suspicious lesion. Electronically Signed By: Rui vasques/omar:09/13/2021 10:38:57 letter sent: Normal Exam ACR BI-RADS Category 1: Negative [id number]
== END ==
PROVIDERS: PCP Family Medicine; Referring Provider Family Medicine; Visit Provider Family Medicine
DX: Z12.31 Encounter for screening mammogram for malignant neoplasm of breast (principal); Z80.3 Family history of malignant neoplasm of breast
CPT/HCPCS: 77063; 77067

== ENCOUNTER → 2021-12-08 12:18 | Outpatient (CLI) | payer OTHER, MEDICARE, SELFPAY ==
--- NOTE | 2021-12-08 12:20 | DI.US.S_ITS ---
PROCEDURE: US RENAL COMPLETE INDICATIONS: back pain, FH Kidney cancer - sister TECHNIQUE: Real-time scanning was performed of the kidneys and bladder, with image documentation. COMPARISON: None. FINDINGS: Kidneys: Kidneys are normal in size. Right kidney measures 9.4 cm long; left kidney measures 1.1 cm long. Right renal cortical thickness is 9.6 cm; left renal cortical thickness is 0.8 cm. Renal cortical echotexture is normal. No hydronephrosis or nephrolithiasis. No suspicious solid mass lesions. Bladder: The bladder was not visualized as it was empty prior to the exam. Miscellaneous: Limited exam due to large amount of bowel gas. IMPRESSION: Normal bilateral kidneys. Dictated by: Reji Camarillo M.D. on 12/08/2021 at 14:33 Approved by: Reji Camarillo M.D. on 12/08/2021 at 14:35
== END ==
PROVIDERS: PCP Family Medicine; Referring Provider Physician Assistant; Visit Provider Physician Assistant
DX: M54.9 Dorsalgia, unspecified (principal); Z80.51 Family history of malignant neoplasm of kidney
CPT/HCPCS: 76770

== ENCOUNTER → 2023-08-15 10:46 | Outpatient (CLI) | payer MEDICARE, SELFPAY ==
--- NOTE | 2023-08-15 10:49 | DI.CT.S_ITS ---
PROCEDURE: CT ABDOMEN PELVIS W CON INDICATIONS: left sided pelvic pain TECHNIQUE: After the administration of intravenous contrast, axial sections acquired from the lung bases to the pubic symphysis. Coronal and sagittal reformats were performed. For radiation dose reduction, the following was used: automated exposure control, adjustment of mA and/or kV according to patient size. COMPARISON: [facility], CT, CT IVP, 05/11/2023, 8:45. FINDINGS: Image quality: Diagnostic. Lower Chest: No significant findings. ABDOMEN: Liver: No solid mass. Gallbladder: No radiopaque gallstones or wall thickening. Biliary ducts: No biliary dilation. Pancreas: No ductal dilation. Spleen: Size is within normal limits. Adrenal Glands: No adrenal nodules. Kidneys and Ureters: No hydronephrosis. No solid mass. No complex renal cystic lesion which requires follow up. Stomach and Bowel: Normal colonic caliber, without significant wall thickening. The appendix is thin walled and gas filled. Inspissated appearing stool is present in the distal sigmoid. Peritoneum: No abnormal intraperitoneal fluid. No free air. Ventral Wall: No significant ventral hernia. Abdominal Nodes: No retroperitoneal or mesenteric adenopathy by size criteria. Vessels: Aorta and inferior vena cava are normal in size. There are scattered atheromatous calcifications throughout the aorta and iliac arteries bilaterally. PELVIS: Pelvic Organs: Unremarkable. Bladder: No bladder wall thickening, accounting for underdistention. Pelvic Nodes: No enlarged lymph nodes. Miscellaneous: No inguinal hernias are seen. Bones: No aggressive osseous abnormality. IMPRESSION: 1. No acute intra-abdominal findings. Normal appendix. 2. Inspissated appearing stool within the distal sigmoid. It is unclear whether this is the etiology of the patient's pelvic pain. Dictated by: Rizwana Nguyen M.D. on 08/15/2023 at 13:48 Approved by: Rizwana Nguyen M.D. on 08/15/2023 at 14:05
[2023-08-15 11:28] LABS: Estimated Glomerular Filt Rate > 60 mL/min (>60)
== END ==
PROVIDERS: Radiology Vascular & Interventional Radiology; PCP Nurse Practitioner Family; Referring Provider Student in an Organized Health Care Education/Training Program; Visit Provider Student in an Organized Health Care Education/Training Program
DX: R10.2 Pelvic and perineal pain (principal); Z80.51 Family history of malignant neoplasm of kidney
CPT/HCPCS: 36415; 74177; 82565; Q9967